=== PATIENT | female | born 1950 | race Caucasian/White ===

== ENCOUNTER 2019-06-02 09:41 | Outpatient (CLI) | payer MEDICARE, SELFPAY ==
--- NOTE | ~2019-06-02 | MM_ITS ---
EXAMINATION: MM screening bear BI w na HISTORY: Screening mammogram TECHNIQUE: Craniocaudal and mediolateral oblique 3-D tomosynthesis images were obtained and synthetic 2-D images were generated. CAD analysis was submitted and interpreted. COMPARISON: 05/09/2018, 04/24/2017, 03/29/2016 bilateral digital screening mammogram examinations BREAST PARENCHYMAL COMPOSITION: The breasts are almost entirely fatty. FINDINGS: There is no evidence of suspicious mass, calcification, or architectural distortion to sugg est malignancy in either breast. There has been no suspicious interval change. IMPRESSION: 1. No mammographic evidence of malignancy. 2. Recommend routine screening mammography in one year. BI-RADS Category 1: Negative Reviewed, dictated and finalized at location A. ROAD EMERGENCY SERVICES MANAGER
== END 2019-06-02 09:42 | disposition home or self-care (01) ==
PROVIDERS: PCP Family Medicine; Visit Provider Family Medicine
DX: Z12.31 Encounter for screening mammogram for malignant neoplasm of breast (principal)
CPT/HCPCS: 77063; 77067

== ENCOUNTER 2020-06-24 14:32 | Outpatient (CLI) | payer MEDICARE, SELFPAY ==
--- NOTE | ~2020-06-24 | MM_ITS ---
EXAMINATION: MM screening bear BI w na HISTORY: Screening TECHNIQUE: Craniocaudal and mediolateral oblique 3-D tomosynthesis images were obtained and synthetic 2-D images were generated. CAD analysis was submitted and interpreted. COMPARISON: Comparison to multiple prior studies sequentially, with oldest reviewed study dated 08/17. BREAST PARENCHYMAL COMPOSITION: There are scattered areas of fibroglandular density. FINDINGS: There is no evidence of suspicious mass, calcification, or architectural distortion to sugg est malignancy in either breast. There has been no suspicious interval change. IMPRESSION: 1. No mammographic evidence of malignancy. 2. Recommend routine screening mammography in one year. BI-RADS Category 1: Negative Reviewed, dictated and finalized at location A. STRIPPER
--- NOTE | ~2020-06-24 | DEXA_ITS ---
Bone Density Report Name: Elham Benedict Age: 69 Sex: Female Ethnicity: White Date of : 1950 Indication: osteopenia; monitoring treatment; prior fracture; hysterectomy; Referring Provider: Willem, True Larios Study: Bone densitometry was performed. Exam Date: June 24, 2020 Accession number: [id number] Bone Density: Region BMD T-score Z-score Classification AP Spine (L1, L2) 0.891 -0.8 1.2 Normal Femoral Neck (Left) 0.654 -1.8 0.1 Osteopenia Total Hip (Left) 0.872 -0.6 1.0 Normal Total Hip Bilateral Avg 0.874 -0.6 1.0 Normal Femoral Neck (Right) 0.689 -1.4 0.4 Osteopenia Total Hip (Right) 0.876 -0.5 1.0 Normal World Health Organization criteria for BMD impression classify patients as: Normal (T-score at or above -1.0), Osteopenia (T-score between -1.0 and -2.5), or Osteoporosis (T-score at or below -2.5). 10-year Fracture Risk: FRAX not reported because: Treated for osteoporosis Previous Exams: Region Exam Age BMD T-score BMD Change BMD Change Date g/cm2 vs Baseline vs Previous AP Spine(L1, L2) 06/24/2020 69 0.891 -0.8 0.009(1.0%)# 0.029(3.4%)* 04/29/2018 67 0.862 -1.1 -0.021(-2.3%)# -0.021(-2.3%)# 07/14/2013 62 0.882 -0.9 Total Hip(Left) 06/24/2020 69 0.872 -0.6 -0.007(-0.8%)# 0.013(1.5%) 04/29/2018 67 0.859 -0.7 -0.020(-2.3%)# -0.020(-2.3%)# 07/14/2013 62 0.879 -0.5 Total Hip(Right) 06/24/2020 69 0.876 -0.5 0.015(1.8%)# 0.032(3.8%)* 04/29/2018 67 0.844 -0.8 -0.017(-2.0%)# -0.017(-2.0%)# 07/14/2013 62 0.861 -0.7 *Denotes significance at 95% confidence level, LSC for AP Spine = 0.022 g/cm2, LSC for Total Hip = 0.027 g/cm2 Clinical Information Provided by Patient: Has had a low trauma fracture Is being treated for osteoporosis Has used the following medications: Fosamax (i.e. alendronate), Vitamin D, Calcium Has the following medical conditions: Hysterectomy Patient maximum height was 65 Menopause Age: 51 No regular weight bearing exercise Onset of menses at age 13 Number of children 3 Impression: The patient has low bone mass, based on the Left Femoral Neck T-score. The patient has risk factors, including: previous fracture. No significant bone loss was observed. Discussion: PATIENT UNDER TREATMENT WITH NO SIGNIFICANT BMD LOSS SINCE LAST EXAM. In an untreated patient, BMD typically declines with age. A lack of decline or gain is usually a sign that treatment is efficacious and frac
== END 2020-06-24 14:33 | disposition home or self-care (01) ==
PROVIDERS: PCP Family Medicine; Visit Provider Family Medicine
DX: Z12.31 Encounter for screening mammogram for malignant neoplasm of breast (principal); Z78.0 Asymptomatic menopausal state; M85.852 Other specified disorders of bone density and structure, left thigh; M85.851 Other specified disorders of bone density and structure, right thigh
CPT/HCPCS: 77063; 77067; 77080

== ENCOUNTER 2020-08-19 12:22 | Emergency (ER) | payer MEDICARE, SELFPAY ==
[2020-08-19 12:31] VITALS: BP 150/96; PULSE 104; RESP 20; TEMP 36.9; O2SAT 99
--- NOTE | 2020-08-19 12:33 | ED.WOUNDLAC ---
HPI - Wound/Laceration General Chief Complaint: Wound/Laceration Stated Complaint: cut left 4th finger Time Seen by Provider: 08/19/20 12:33 Source: patient Mode of arrival: ambulatory Limitations: no limitations History of Present Illness HPI narrative: Elham Benedict is a 70 yo female with a PMH of high cholesterol, HTN, Comes to [facility] with a small avulsion of the L fiurther distal finger, medial side. Related Data Home Medications Medication Instructions Recorded Confirmed azelaic acid TOPICAL 08/19/20 estradiol VAGINAL 08/19/20 rosuvastatin mg 08/19/20 spironolacton-hydrochlorothiaz tablet 08/19/20 verapamil mg PO 08/19/20 zolpidem 08/19/20 Allergies Allergy/AdvReac Type Severity Reaction Status Date / Time ampicillin Allergy Unknown Unverified 06/19/14 15:44 brimonidine Allergy Unknown Unverified 06/19/14 15:44 dorzolamide Allergy Unknown Unverified 06/19/14 15:44 latanoprost Allergy Unknown Unverified 06/19/14 15:44 niacin Allergy Unknown Unverified 06/19/14 15:44 timolol Allergy Unknown Unverified 06/19/14 15:44 clarithromycin AdvReac Unknown Unverified 06/19/14 15:44 meperidine AdvReac Unknown Unverified 06/19/14 15:44 trazodone AdvReac Unknown Unverified 06/19/14 15:44 Review of Systems Review of Systems: Narrative: CONSTITUTIONAL: Denies fever, chills, sweats. EYES: Denies visual changes, redness, discharge. ENT: Denies rhinorrhea, congestion, sore throat, otalgia. CARDIOVASCULAR: Denies chest pain, palpitations, edema. RESPIRATORY: Denies dyspnea, wheezing, cough GASTROINTESTINAL: Denies abdominal pain, nausea, vomiting, diarrhea. GENITOURINARY: Denies dysuria, hematuria, abnormal discharge SKIN: Denies rash or itching. Small avusion of the distal fourth finger NEUROLOGIC: Denies numbness, or focal weakness. PSYCHIATRIC: Denies anxiety or depression. [facility] Past Medical History Medical History High cholesterol HTN (hypertension) Family History Family History Other Diabetes mellitus Family history of coronary artery disease Family history of elevated blood lipids Hypertension Social History Social History Smoking status: Never smoker Alcohol intake: current Comments At time of signature, I agree with nursing past medical, surgical, social and family history. There is no relevant family history pertinent to the presenting complaint. Exam Narrative: Exam Narrative: GENERAL: This is a well-nourished, well-developed patient, in mild distress. HEAD: normocephalic, atraumatic. EYES: Sclera clear/white. Vision is grossly intact. EARS: External ears normal. Hearing grossly intact. NOSE: External nose normal without nasal discharge, nares without redness, no rhinorrhea. THROAT: Mucous membranes moist, NECK: Neck supple, CARDIOVASCULAR: Regular rate and rhythm without murmurs, gallops, or rubs. RESPIRATORY: Clear to auscultation. Breath sounds equal bilaterally. No wheezes, rales, or rhonchi. GASTROINTESTINAL: Abdomen soft, SKIN: warm, intact with small ( 1 cm) skin avulsion at tip of fourth finger that is ooozing NEURO: awake, alert, and oriented to person, place and time. There were no obvious focal neurologic abnormalities. Steady gait EXTREMITIES: Normal range of motion. BACK: Nontender without deformity Course Course Emergency Course: [facility] avulsion of the distal digit of the fourth finger - Procedure with surgicel, finer splint applied- directions given Vital Signs Vital signs: Vital Signs Temperature 98.4 F 08/19/20 12:31 Pulse Rate 104 H 08/19/20 12:31 Respiratory Rate 20 08/19/20 12:31 Blood Pressure 150/96 H 08/19/20 12:31 Pulse Oximetry 99 08/19/20 12:31 Temperature 98.4 F 08/19/20 12:31 Pulse Rate 104 H 08/19/20 12:31
[2020-08-19] MEDS: TETANUS,DIPHTHERIA,AC PERTUSSIS ADULT (0.5 ML) BOOSTRIX IM (12:49)
== END 2020-08-19 13:38 | disposition home or self-care (01) ==
PROVIDERS: Emergency Provider Nurse Practitioner; PCP Family Medicine
DX: S61.205A Unspecified open wound of left ring finger without damage to nail, initial encounter (principal); W45.8XXA Other foreign body or object entering through skin, initial encounter; Z23 Encounter for immunization; I10 Essential (primary) hypertension; E78.00 Pure hypercholesterolemia, unspecified
CPT/HCPCS: 90471; 90715; 99212; G0463

== ENCOUNTER 2021-06-27 10:21 | Outpatient (CLI) | payer MEDICARE, SELFPAY ==
--- NOTE | ~2021-06-27 | MM_ITS ---
EXAMINATION: MM screening bear BI w na HISTORY: Screening TECHNIQUE: Craniocaudal and mediolateral oblique 3-D tomosynthesis images were obtained and synthetic 2-D images were generated. CAD analysis was submitted and interpreted. COMPARISON: Comparison to multiple prior studies sequentially, with oldest reviewed study dated 08/17. BREAST PARENCHYMAL COMPOSITION: There are scattered areas of fibroglandular density. FINDINGS: There is no evidence of suspicious mass, calcification, or architectural distortion to sugg est malignancy in either breast. There has been no suspicious interval change. IMPRESSION: 1. No mammographic evidence of malignancy. 2. Recommend routine screening mammography in one year. BI-RADS Category 1: Negative Reviewed, dictated and finalized at location A. CTOR OF CORPORATE SALES
== END 2021-06-27 10:22 | disposition home or self-care (01) ==
PROVIDERS: PCP Family Medicine; Visit Provider Obstetrics & Gynecology
DX: Z12.31 Encounter for screening mammogram for malignant neoplasm of breast (principal)
CPT/HCPCS: 77063; 77067

== ENCOUNTER 2022-05-20 11:33 | Outpatient (CLI) | payer MEDICARE, SELFPAY ==
--- NOTE | ~2022-05-20 | XR_ITS ---
XR chest 2V 05/20/2022 11:54 Indication: Breast pain Procedure: PA and lateral views the chest Comparison: CT dated 09/16/2014 Findings: There are coarse interstitial infiltrates peripherally and symmetrically. Heart size normal . No pleural effusion. No pneumothorax. Impression: 1: Coarse interstitial infiltrates symmetrically and bilaterally, likely chronic, with a pattern cons istent with usual interstitial pneumonia. Reviewed, dictated and finalized at location A. RVISOR RECLAMATION Impression: 1: Coarse interstitial infiltrates symmetrically and bilaterally, likely chroni c, with a pattern consistent with usual interstitial pneumonia.
== END 2022-05-20 11:34 | disposition home or self-care (01) ==
PROVIDERS: PCP Family Medicine; Visit Provider Family Medicine
DX: N64.4 Mastodynia (principal); R91.8 Other nonspecific abnormal finding of lung field
CPT/HCPCS: 71046

== ENCOUNTER 2022-05-29 13:14 | Outpatient (CLI) | payer MEDICARE, SELFPAY ==
--- NOTE | ~2022-05-29 | MM_ITS ---
EXAMINATION: MM diagnostic bear BI w na HISTORY: Right upper outer quadrant breast pain TECHNIQUE: ML, MLO and CC 3-D tomosynthesis images of both breasts were performed and synthetic 2-D i mages were generated. CAD analysis was submitted and interpreted. COMPARISON: 06/27/2021, 06/24/2020, bilateral screening mammogram examinations BREAST PARENCHYMAL COMPOSITION: The breasts are almost entirely fatty. FINDINGS: No suspicious mass or architectural distortion, malignant calcification, skin thickening or retraction or significant new or developing density is detected. IMPRESSION: 1. No mammographic evidence of malignancy 2. Routine mammographic screening is recommended BI-RADS Category 1: Negative Reviewed, dictated and finalized at location A. MAKER
== END 2022-05-29 13:15 | disposition home or self-care (01) ==
PROVIDERS: PCP Family Medicine; Visit Provider Family Medicine
DX: N64.4 Mastodynia (principal)
CPT/HCPCS: 77062; 77066; G0279

== ENCOUNTER 2022-06-06 09:04 | Outpatient (CLI) | payer MEDICARE, SELFPAY ==
--- NOTE | ~2022-06-06 | CT_ITS ---
EXAMINATION: CT diagnostic chest wo con DATE: 06/06/2022 09:33 INDICATION: Lung infiltrate TECHNIQUE: Computed tomography (CT) of the chest was performed without intravenous contrast. The dose -length product (DLP) was 92.02 mGy-cm. Automated exposure control and iterative reconstruction techn ique were employed. COMPARISON: 09/16/2014 FINDINGS: There are subpleural reticular and groundglass opacities with a mid and lower lung zone pre dominance. No honeycombing is identified. No pleural effusion or pneumothorax. No pathologically enla rged thoracic lymph nodes are identified. The heart size is normal. Calcified coronary artery atheros clerosis is noted. There is an L1 compression fracture with 35% loss of anterior vertebral body heigh t, new since the comparison examination. IMPRESSION: 1. Chronic interstitial lung disease in a pattern of nonspecific interstitial pneumonia (NSIP). 2. L1 compression fracture with 35% loss of anterior vertebral body height, new since the comparison examination. Reviewed, dictated and finalized at location B. ERN GRADER CUTTER IMPRESSION: 1. Chronic interstitial lung disease in a pattern of nonspecific interstitial p neumonia (NSIP). 2. L1 compression fracture with 35% loss of anterior vertebral body height, new since the comparison examination.
== END 2022-06-06 09:05 | disposition home or self-care (01) ==
PROVIDERS: PCP Family Medicine; Visit Provider Family Medicine
DX: R91.8 Other nonspecific abnormal finding of lung field (principal); S32.010D Wedge compression fracture of first lumbar vertebra, subsequent encounter for fracture with routine healing; X58.XXXD Exposure to other specified factors, subsequent encounter
CPT/HCPCS: 71250

== ENCOUNTER 2022-06-27 12:55 | Outpatient (CLI) | payer MEDICARE, SELFPAY ==
--- NOTE | ~2022-06-27 | DEXA_ITS ---
Bone Density Report Name: SUMA STRICKLAND Age: 71 Sex: Female Ethnicity: White Date of : 1950 Indication: postmenopausal; screening for osteoporosis; prior fracture; asthma or emphysema; Referring Provider: LUCIANO, SHERYL Larios Study: Bone densitometry was performed. Exam Date: June 27, 2022 Accession number: [id number] Bone Density: Region BMD T-score Z-score Classification AP Spine(L1-L4) 1.036 -0.1 2.2 Normal Femoral Neck (Left) 0.688 -1.4 0.5 Osteopenia Total Hip (Left) 0.906 -0.3 1.4 Normal Femoral Neck (Right) 0.729 -1.1 0.9 Osteopenia Total Hip (Right) 0.858 -0.7 1.0 Normal Total Hip Mean 0.882 -0.5 1.2 Normal World Health Organization criteria for BMD impression classify patients as: Normal (T-score at or above -1.0), Osteopenia (T-score between -1.0 and -2.5), or Osteoporosis (T-score at or below -2.5). 10-year Fracture Risk: FRAX not reported because: Prior hip or vertebral fracture Previous Exams: Region Exam Age BMD T-score BMD Change BMD Change Date g/cm2 vs Baseline vs Previous Total Hip(Left) 06/27/2022 71 0.906 -0.3 0.047 (5.5%)* 0.034 (3.9%)* 06/24/2020 69 0.872 -0.6 0.013 (1.5%) 0.013 (1.5%) 04/29/2018 67 0.859 -0.7 Total Hip(Right) 06/27/2022 71 0.858 -0.7 0.014 (1.7%) -0.018 (-2.1%) 06/24/2020 69 0.876 -0.5 0.032 (3.8%)* 0.032 (3.8%)* 04/29/2018 67 0.844 -0.8 *Denotes significance at 95% confidence level, LSC for Total Hip = 0.027 g/cm2 Clinical Information Provided by Patient: Have had a previous hip or vertebral fracture Has had a low trauma fracture Has used the following medications: Vitamin D, Calcium Has the following medical conditions: Asthma or Emphysema Patient maximum height was 65.5 Menopause Age: 51 No regular weight bearing exercise Drinks caffeinated beverages Onset of menses at age 15 Number of children 3 Missed period for more than 6 months in a row Impression: The patient has low bone mass, based on the Left Femoral Neck T-score. The patient has risk factors, including: previous fracture. No significant bone loss was observed. Discussion: INCREASED RISK OF FRACTURE DUE TO HISTORY OF FRACTURE. The patient's previous fracture puts the patient at high risk of a future fracture. In untreated patients, the risk of osteoporotic fracture increases approximately two-fold for each 1.0 SD decrease in T-score. Low bone density is not the only risk factor for fracture; also consider factors such
== END 2022-06-27 12:56 | disposition home or self-care (01) ==
PROVIDERS: PCP Family Medicine; Visit Provider Family Medicine
DX: Z78.0 Asymptomatic menopausal state (principal); M85.852 Other specified disorders of bone density and structure, left thigh; M85.851 Other specified disorders of bone density and structure, right thigh
CPT/HCPCS: 77080

== ENCOUNTER 2022-12-31 13:41 | Outpatient (CLI) | payer MEDICARE, SELFPAY ==
--- NOTE | ~2022-12-31 | CT_ITS ---
EXAMINATION:CT chest high resolution wo nc DATE: 12/31/2022 14:14 INDICATION: Interstitial lung disease. TECHNIQUE: Computed tomography (CT) of the chest was performed without intravenous contrast. Automate d exposure control and iterative reconstruction technique were employed. The dose-length product (DLP ) was 217.21 mGy-cm. COMPARISON: Chest CT 06/06/2022 FINDINGS: There is widespread peripheral septal thickening in the lungs. There are associated relativ bassam mild groundglass opacities in the inferior lungs. There is mild bronchiectasis in the inferior jyoti ngs. No honeycombing. No pleural effusion. The heart size is normal. There are coronary artery calcif ications. No pericardial effusion. There is ectasia of ascending aorta measuring 4.0 cm. There are no pathologically enlarged lymph nodes. There is mild thoracic spondylosis. Again seen is a chronic bur st fracture of L1. IMPRESSION: 1. Stable chronic interstitial lung disease in a pattern of nonspecific interstitial pneumonia (NSIP) versus usual interstitial pneumonia (UIP). Reviewed, dictated and finalized at location A. IMPRESSION: 1. Stable chronic interstitial lung disease in a pattern of nonspecific interst itial pneumonia (NSIP) versus usual interstitial pneumonia (UIP).
== END 2022-12-31 13:42 | disposition home or self-care (01) ==
LOC: ANHIMG 13:44
PROVIDERS: PCP Family Medicine
DX: J84.9 Interstitial pulmonary disease, unspecified (principal)
CPT/HCPCS: 71250

== ENCOUNTER 2023-09-03 10:15 | Outpatient (CLI) | payer MEDICARE, SELFPAY ==
--- NOTE | ~2023-09-03 | MM_ITS ---
EXAMINATION: MM screening bear BI w na HISTORY: Screening mammogram TECHNIQUE: Craniocaudal and mediolateral oblique 3-D tomosynthesis images were obtained and synthetic 2-D images were generated. CAD analysis was submitted and interpreted. COMPARISON: May 29, 2022, June 27, 2021 bilateral screening mammogram examinations BREAST PARENCHYMAL COMPOSITION: The breasts are almost entirely fatty. FINDINGS: There is no evidence of suspicious mass, calcification, or architectural distortion to sugg est malignancy in either breast. There has been no suspicious interval change. IMPRESSION: 1. No mammographic evidence of malignancy. 2. Recommend routine screening mammography in one year. BI-RADS Category 1: Negative Reviewed, dictated and finalized at location A.
== END 2023-09-03 10:16 | disposition home or self-care (01) ==
PROVIDERS: PCP Family Medicine; Visit Provider Obstetrics & Gynecology
DX: Z12.31 Encounter for screening mammogram for malignant neoplasm of breast (principal)
CPT/HCPCS: 77063; 77067

== ENCOUNTER 2024-01-06 13:34 | Outpatient (CLI) | payer MEDICARE, SELFPAY ==
--- NOTE | ~2024-01-06 | CT_ITS ---
EXAMINATION: CT diagnostic chest wo con DATE: 01/06/2024 13:58 INDICATION: interstitial pulmonary disease TECHNIQUE: Computed tomography (CT) of the chest was performed without intravenous contrast. Addition al 3D reconstructions utilizing coronal maximum intensity projection (MIP) were performed. Automated exposure control and iterative reconstruction technique were employed. The dose-length product was 23 9.68 mGy-cm. COMPARISON: Chest CT dated 12/31/2022 FINDINGS: Stable appearance of bilateral widespread peripheral irregular septal line thickening and mild ground glass opacities with peripheral and lower lung predominance. There also appears to be some mild assoc iated honeycombing and would favor usual interstitial pneumonia (UIP) over nonspecific interstitial p neumonia (NSIP) pattern chronic interstitial lung disease. There is mild associated bronchiectasis in the lower lungs. No suspicious pulmonary nodules, pneumonia or pleural effusion. Heart size is scott l. Small amount of atherosclerotic coronary artery calcification. No pericardial effusion. Thoracic a franki is normal in caliber. No pathologically enlarged thoracic lymphadenopathy. No significant change in a 8 mm low-attenuation likely cyst or hemangioma in the left hepatic lobe. Unchanged chronic L1 b urst fracture. IMPRESSION: 1. Stable appearance of chronic interstitial lung disease and favor usual interstitial pneumonia (UIP ) over nonspecific interstitial pneumonia (NSIP) pattern chronic interstitial lung disease. Reviewed, dictated and finalized at location B. IMPRESSION: 1. Stable appearance of chronic interstitial lung disease and favor usual inter stitial pneumonia (UIP) over nonspecific interstitial pneumonia (NSIP) pattern chronic interstitial lung disease.
== END 2024-01-06 13:35 | disposition home or self-care (01) ==
LOC: ANHIMG 13:42
PROVIDERS: PCP Family Medicine; Visit Provider Internal Medicine Pulmonary Disease
DX: J84.9 Interstitial pulmonary disease, unspecified (principal)
CPT/HCPCS: 71250

== ENCOUNTER 2024-01-28 14:37 | Outpatient (CLI) | payer MEDICARE, SELFPAY ==
--- NOTE | ~2024-01-28 | MR_ITS ---
EXAMINATION: MR brain IAC wo/w con DATE: 01/28/2024 15:42 INDICATION: Asymmetric sensorineural hearing loss. TECHNIQUE: Magnetic resonance imaging (MRI) of the brain, brainstem, and internal auditory canals was performed without and with 17 mL MultiHance intravenous contrast. COMPARISON: None. FINDINGS: There are scattered areas of nonspecific increased T2-weighted signal intensity in the cere bral white matter. There is no intracranial hemorrhage, acute infarction, or abnormal intracranial ma ss lesion. The ventricles are normal in size. The internal auditory canals, inner ears, tympanic cavi ties, and mastoid air cells are normal. There is mild mucosal thickening in the ethmoid sinuses. The orbits are normal. IMPRESSION: 1. Mild nonspecific cerebral white matter disease, which likely represents chronic small vessel ische janette disease. Reviewed, dictated and finalized at location A. IMPRESSION: 1. Mild nonspecific cerebral white matter disease, which likely represents data systems manager kathy small vessel ischemic disease.
== END 2024-01-28 14:38 | disposition home or self-care (01) ==
PROVIDERS: PCP Family Medicine; Visit Provider Otolaryngology
DX: H90.3 Sensorineural hearing loss, bilateral (principal); R90.82 White matter disease, unspecified
CPT/HCPCS: 70553; A9577

== ENCOUNTER 2024-05-06 14:31 | Outpatient (CLI) | payer MEDICARE, SELFPAY ==
[2024-05-06 15:04] LABS: Alanine Aminotransferase 19 U/L (6-35); Aspartate Amino Transferase 31 U/L (14-36)
== END 2024-05-06 14:32 | disposition home or self-care (01) ==
PROVIDERS: PCP Family Medicine; Visit Provider Podiatrist Foot & Ankle Surgery
DX: B35.1 Tinea unguium (principal)
CPT/HCPCS: 36415; 84450; 84460

== ENCOUNTER 2024-08-05 11:18 | Outpatient (CLI) | payer MEDICARE, SELFPAY ==
[2024-08-05 12:00] LABS: Alanine Aminotransferase 19 U/L (6-35); Aspartate Amino Transferase 34 U/L (14-36)
--- OUTSIDE RECORDS SUMMARY | 2024-08-05 12:43 | XMS_ITS | Clinical Summary ---
Author Organization [facility] [address] [facility] lt Address [address] [place] [address] Care Team Providers Care Veneer Glue Spreader Name Role Phone True Bangura MD Primary Care Provider [phone] Allergies Active Allergy Reactions Criticality Noted Date Comments Ampicillin Rash Reaction: Rash, , Sulfamethoxazole-Trimethopr im Rash Medium 10/14/2017 Clarithromycin Other (See comments) Low Reaction: GI Bleeding, Brimonidine-Timolol Itching Low 10/14/2017 Itching eyelids and swelling Dorzolamide-Timolol Itching Low 10/14/2017 Itching eyelids, swelling Ethinyl Estradiol Rash Reaction: Rash, Levonorgestrel Rash Reaction: Rash, Methylprednisolone Nausea & Vomiting Low Meperidine Vision changes Reaction: Blurred vision, , Naproxen Stomach upset Reaction: GI problems, , Niacin Penicillins Trazodone Azithromycin Nausea only Low 10/14/2017 Medications biotin 800 mcg tablet BID 0 0 12/22/19 15 Active coenzyme Q10 (CO Q-10) 100 mg capsule one daily 0 0 12/22/19 15 Active calcium-magnesi um-zinc 333-133-8.3 mg tablet one daily 0 0 12/22/19 15 Active Lactobacillus acidophilus (PROBIOTIC) 10 billion cell capsule one daily 0 0 12/22/19 15 Active multivitamin capsule one daily 0 0 12/22/19 15 Active loratadine (CLARITIN) 10 mg tablet take 1 tablet by oral route every day 0 0 06/21/19 16 Active glucosam wang pmr-yoeqfaixa-Y -Mn (GLUCOSAMINE-CH ONDROITIN) 575-972-45-5 mg tablet BID 0 0 12/22/19 15 Active calcium carbonate (CALCIUM 600) 1,500 mg (600 mg of elemental calcium) tablet BID 0 0 12/22/19 15 Active azelaic acid 15 % gel Apply topically daily After skin is thoroughly washed and patted dry, gently but thoroughly massage a thin film of azelaic acid cream into the affected area twice daily, in the morning and evening. Active cetirizine (ZyrTEC) 5 mg tablet Take 1 tablet (5 mg total) by mouth daily Active fluticasone propionate (FLONASE) 50 mcg/actuation nasal spray Administer 1 spray into each nostril daily Active olopatadine HCl (PATADAY OPHT) Administer into affected eye(s) Active famotidine (Pepcid) 40 mg tablet Take 1 tablet (40 mg total) by mouth nightly 90 tablet 3 07/02/19 24 Active estradioL (ESTRACE) 0.01 % (0.1 mg/gram) vaginal cream INSERT 1/2 GRAM VAGINALLY TWICE WEEKLY NEEDED 42.5 g 1 08/23/19 24 Active alendronate (FOSAMAX) 70 mg tablet Take 1 tablet (70 mg total) by mouth every 7 days. Take in the morning with a full glass of water, on an empty stomach, and do not take anything else by mouth or lie down for the next 30 min. 12 tablet 1 02/25/20 24 025 Active rosuvastatin (CRESTOR) 10 mg tablet TAKE 1 TABLET DAILY 90 tablet 3 04/17/20 24 Active verapamil SR (CALAN SR) 180 mg CR tablet TAKE 1 TABLET DAILY 90 tablet 3 04/17/20 24 Active doxepin 6 mg tablet Take 1 Tablet (6 mg) by mouth daily at bedtime. 90 tablet 3 04/27/19 25 Active terbinafine (LamiSIL) 250 mg tablet Take 1 tablet (250 mg total) by mouth daily Active spironolactone- hydroCHLOROthia zide (ALDACTAZIDE) 25-25 mg per tablet Take 1 tablet by mouth daily 90 tablet 1 07/28/19 25 Active spironolactone- hydroCHLOROthia zide (ALDACTAZIDE) 25-25 mg per tablet Take 1 tablet by mouth daily 90 tablet 1 01/28/20 24 025 Discontinued Active Problems Problem Noted Date Diagnosed Date Non-allergic eosinophilic rhinitis (NARES) 06/30 Assessment & Plan (06/30/2024 2:33 PM CDT): COntinue to follow and eunice landeros. NO change and will follw nino. Refer to Dr. Lamb. Encounter for screening mamm ogram for malignant neoplasm of breast 06/30/2024 Assessment & Plan (06/30/2024 2:33 PM CDT): Mamomgram ordered and pending. WIll follow response. Asymptomatic menopausal state 06/30/2024 Assessment & Plan (06/30/2024 2:33 PM CDT): BOne dneisty. Reivewed calcium and vitamin D supploementaiton. BMI 31.0-31.9,adult 06/30/2024 Assessment & Plan (06/30/2024 2:33 PM CDT): Emncoruage 150min/week aerobic exerics.e Obesity (BMI 30.0-34.9) 06/30/2024 History of colonic polyps 02/26/2024 Encounter for screening colonoscopy 02/26/2024 Family history of colon cancer 02/26/2024 Medicare annual wellness visit, subsequent 01/06 Assessment & Plan (01/07/2024 10:27 AM CDT): Focus of exam is preventative in nature. Reivewed immunizations, reivewed sun/skin cancer screening. Reviwed colon/breast cancer screneing. Reivewed fall prevention and will continue to follow response. Healthy lifesytle and food choices. Asymmetric SNHL (sensorineural hearing loss) Assessment & Plan (06/30/2024 2:33 PM CDT): Ek0rxafdv f/u with Dr. Lamb and hearing aid dawnauaprince. Assessment & Plan (01/07/2024 10:28 AM CDT): COnbtinue f/u with ENT and audiology. [facility] MRI of the area to r/o intracranial pathology. No vertigo, no focal abnomraltieis. Gastroesophageal reflux disease 01/07/2024 Assessment & Plan (01/07/2024 10:28 AM CDT): Stable on famotidine, no dysphagia, no blood in the stools, no blood in the urine. Osteoporosis 01/07/2024 Assessment & Plan (01/07/2024 10:28 AM CDT): Continue on calcium, vitamin D supplementation and alendronate. No chagne. Primary osteoarthritis of right hip 01/07/2024 Assessment & Plan (01/07/2024 10:29 AM CDT): ENocurage weight bearign activity as tolerated. Reviewed tylenol dosing and will montio rrepsonse. ENcourage 2,000-3,000mg tylenol daily. REivewed nonweightbearing aerobic exericse. BMI 30.0-30.9,adult 01/07/2024 Assessment & Plan (01/07/2024 10:29 AM CDT): ENocurag ehelathy food choices and aerobic exericse targets. Class 1 obesity due to exces s calories with body mass index (BMI) of 30.0 to 30.9 in adult 01/07/2024 Assessment & Plan (01/07/2024 10:29 AM CDT): As above. Interstitial lung disease 01/14/2023 Assessment & Plan (06/30/2024 2:33 PM CDT): Continue f/u with Dr. Altman. No acute findings on exam today. Assessment & Plan (01/07/2024 10:26 AM CDT): Continue f/u with Dr. Altman. No change in dry cough and no change in CT scna completed yesterday at [facility]. Refused pneumococcal vaccination 06/16/2018 Refused influenza vaccine 06/16/2018 Basal cell carcinoma (BCC) of face 11/07/2016 Assessment & Plan (01/07/2024 10:26 AM CDT): Continue f/u with dermatology. Assessment & Plan (11/29/2020 10:30 AM CDT): Sees Dr. Bowling. MOHS surgery x2. No new lesions in past 6 months. Actinic keratosis 05/09/2016 Strain of lumbar region 03/09/2016 Overview (07/27/2016): Strain of muscle, fascia and tendon of lower back, initial encounter Hyperlipidemia 12/21/2014 Overview (07/27/2016): Hyperlipidemia Assessment & Plan (06/30/2024 2:32 PM CDT): Continues with crestor and will follow response. No new side effects to medication and will montior response. Assessment & Plan (01/07/2024 10:25 AM CDT): Stable on rosuvastatin. NO new myalgias./arthralgias. Assessment & Plan (11/29/2020 10:31 AM CDT): Rosuvastatin 10mg daily. Denies any SE/myalgias Reviewed previous labs. Will check labs today and make adjustments to medications as needed. Secondary prevention Discussed focusing on limiting bad fats in the diet and using exercise as a way to improve cholesterol. Reviewed exercise recommendations and red flags warranting further evaluation. Persistent insomnia 12/21/2014 Overview (07/27/2016): Persistent insomnia Assessment & Plan (11/29/2020 10:32 AM CDT): Doing well on zolpidem 10mg nightly. Essential hypertension 12/21/2014 Overview (07/27/2016): Hypertension Assessment & Plan (06/30/2024 2:32 PM CDT): Stable on aldactazide and verapamil SR and will monitor repsonse. Encourage and will follwroe spnse. NO change. Assessment & Plan (01/07/2024 10:26 AM CDT): Stable on aldactazide and verapamil SR 180mg daily. Assessment & Plan (11/29/2020 10:33 AM CDT): Doing well on current regimen. Checking BP at home. Will call if SBP >140, DBP>90. Continue effort to improve diet-increase fruits/vegetables. Watch sodium intake <2000mg daily Labs ordered; will notify of results. Assessment & Plan (10/01/2016 2:01 PM CDT): Patient with excellent home BP monitoring. All at goal. Lonstanding hx of white coat HTN. Resolved Problems Problem Noted Date Diagnosed Date Resolved Date Encounter for screening colonoscopy 10/15/2018 01/12/2020 Overview (10/15/2018): Added automatically from request for surgery [id number] Encounters Date Type Department Care Team Description 06/30/2024 2:00 PM CDT Office Visit [facility] Primary Care at [address] [address] True Bangura MD Mixed hyperlipidemia (Primary Dx); Essential hypertension; Interstitial lung disease (HCC); Non-allergic eosinophilic rhinitis (NARES); Encounter for screening mammogram for malignant neoplasm of breast; Asymptomatic menopausal state; Asymmetric SNHL (sensorineural hearing loss); BMI 31.0-31.9,adult; Obesity (BMI 30.0-34.9) 05/26/2024 11:15 AM PROCESSING SPEC Office Visit [facility] [address] [place] [address] Josue Estrella MD Well woman exam (Primary Dx) 05/18/2024 10:45 AM PROCESSING SPEC Anesthesia Event [facility] [address] [place] [address] Jason Yaeñz MD McDowell, Juri Osmell, MD 05/18/2024 10:00 AM PROCESSING SPEC - 05/18/2024 10:30 AM PROCESSING SPEC Surgery [address] [address] Bradly Marr MD COLONOSCOPY 05/18/2024 9:03 AM PROCESSING SPEC - 05/18/2024 12:05 PM PROCESSING SPEC Hospital Encounter [address] [address] Bradly Marr MD Discharge Disposition: Discharge to home or self care from Last 3 Months Immunizations Immunization Administration Dates Next Due COVID-19 mRNA (Kangsheng Chuangxiang) 0.3 m L (30 mcg) vaccine (12 years and up) 03/16/2024 Influenza, Quad, Adjuvantate d, Intramuscular 01/21/2020 Influenza, Quadrivalent, Hig h Dose, Preservative Free, Intrr 01/28/2023,02/06/2022 Influenza, Quadrivalent, Spl it, Preservative Free, Intramuscular 01/31/2016,02/09/2015 Influenza, Trivalent, Adjuva nted, Intramuscular 01/31/2024,02/13/2019,02/07/2018,02/07,02/07/2018 Influenza, Trivalent, High D ose, Split, Preservative Free, Intramuscular 02/19/2017,01/31/2016 Influenza, Trivalent, IM (MDV) 02/02/2014 Influenza, Unspecified 01/07/2024(Deferr ed: Patient Refused),01/01/2023(Deferred: Patient Refused),01/20/2021,04/22/2020(Deferre d: Patient Refused),01/21/2020,02/13/2019, 017,02/19/2017 Pfizer SARS-CoV-2 Monovalent Vaccination (12+ Yrs) PURPLE 11/14/2021,05/03/2020,04/12/2020 Pneumococcal Conjugate PCV 13 01/31/2016, 016 Pneumococcal Polysaccharide PPV23 02/19/2017, RSV Vaccine, Pref, Recombina nt, Subunit, Adjuvanted, PF, IM (Arexvy) 02/13/2023 Sars-cov-2 Covid-19 Mrna, Bi valent, Original/omicron Ba.1 02/05/2023 TD Preservative Free 01/29/2006 Tdap 08/19/2020 ZOSTER LIVE 02/01/2010,02/01/2010 Surgical History Surgery Date Site/Laterality Comments TONSILLECTOMY Tonsillectomy TOTAL ABDOMINAL HYSTERECTOMY Hysterectomy, total MOHS SURGERY 07/18/2016 SKIN CANCER EXCISION COLONOSCOPY 07/03/2007 SQUAMOUS CELL CARCINOMA EXCISION 04/22/2020 - 04/21/2021 Left forearm and upper arm COLONOSCOPY 11/20/2018 - 12/20/2018 Medical History Medical History Date Comments Arthritis 2012 Arthritis; Comme nts: [facility] 12/21/2014 - Hx Other Medical 1984 Hyperlipidemia; Comments: [facility] 12/21/2014 - Hypertension 1984 Hypertension; Co mments: [facility] 12/21/2014 - Hx Other Medical 1984 Insomnia; Comme nts: [facility] 12/21/2014 - Hx Other Medical 2012 Rosacea; Commen ts: [facility] 12/21/2014 - Cancer (HCC) basal cell, Squamous cell carcinoma of s kin of right upper arm 03/2019 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 03/2019 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 Family History Medical History Relation Name Comments Other Brother 2 water on the br ain; Cause of : water on the brain defects Cousin 1 Paternal 1st Breast cancer Cousin 2 Colon cancer Cousin 2 Hyperlipidemia Father Hyperlipidemi a; Hypertension Father Hypertension; Other Mother lupus; /sclerod alessandra; Relation Name Status Comments Brother 1 Brother 2 Cousin 1 Paternal 1st Other Cousin 2 Father (Age 84) Mother Social History Tobacco Use Types Packs/Day Years Used Date Smoking Tobacco: Never Smokeless Tobacco: Never Tobacco Cessation:Counseling Given: Not Answered Alcohol Use Standard Drinks/Week Comments Yes 0 (1 standard drink = 0.6 oz pur e alcohol) AUDIT-C Answer Date Recorded Q1: How often do you have a drink containing alc ohol? 2-4 times a month 05/14/2024 Q2: How many drinks containi ng alcohol do you have on a typical day when you are drinking? 1 or 2 05/14/2024 Frequency of Binge Drinking Not on file 04/23 PHQ-2 Answer Date Recorded PHQ-2 Total Score (If total score is 3 or more points, staff should administer the PHQ-9) 0 06/30/2024 Personal Safety Answer Date Recorded Have you ever been in or are you currently in a harmful physical or emotional relationship or is someone making you feel afraid or unsafe? Denies 05/18/2024 Comments No Sex and Gender Information Value Date Recorded Sex Assigned at Not on file Legal Sex Female 9:17 PM PROCESSING SPEC Gender Identity Not on file Sexual Orientation Not on file Obstetrics History Para Term AB IAB SAB Ectopic Multiple Livin g Live Births 4 3 3 0 1 0 1 0 0 3 3 Date Outcome GA Total Labor Labor/2nd/3rd Weight Sex Type Anes PTL [place] A1 A5 Name Clin SAB 1976 Term 3.033 kg (6 lb 11 oz) M Vag-S pont Living 1980 Term 3.487 kg (7 lb 11 oz) F Vag-S pont Living 1984 Term M Living Last Filed Vital Signs Vital Sign Reading Time Taken Comments Blood Pressure 136/82 06/30/2024 2:07 PM CDT Pulse 79 06/30/2024 2:07 PM CDT Temperature 36.8 C (98.2 F) 06/30/2024 2:07 PM CDT Respiratory Rate 16 05/18/2024 11:5 0 AM PROCESSING SPEC Oxygen Saturation 98% 06/30/2024 2:07 PM CDT Inhaled Oxygen Concentration - - Weight 85.2 kg (187 lb 12.8 oz) 06/30/2024 2:07 PM CDT Height 165.1 cm (5' 5 ) 06/30/2024 2:07 PM CDT Body Mass Index 31.25 06/30/2024 2:07 PM CDT Plan of Treatment Health Maintenance Due Date Last Done Comments Hepatitis C Screening 1950 Hepatitis B Screening 08/12/1967 Lung Cancer Screening 08/12/1999 Zoster Vaccine (2 of 3) 03/29/2010 02/01/2010, 02/01 Osteoporosis Screening-Bone Density Scan 06/27/2024 06/27/2022, 06/24/2020, 04/29/2018, Additional history exists Breast Cancer Screening-Mammogram 09/02/2024 09/03/2023, 05/29/2022, 06/27/2021, Additional history exists Covid-19 Vaccine (2023-05 5 season) 2024 03/16/2024, 02/05/2023, 02/05/2023, Additional history exists Well Visit 65+ 05/26/2025 05/26/2024, 12/21, 03/19/2023, Additional history exists Depression Screening 06/30/2025 06/30/2024, 01/07/2024, 07/02/2023, Additional history exists Fall Risk Assessment 06/30/2025 06/30/2024, 01/07/2024, 07/02/2023, Additional history exists Colon Cancer Screening-Colonoscopy 05/18/2029 05/18/2024, 12/05/2018, 12/05/2018, Additional history exists DTaP/Tdap/Td Vaccine (2 - Td or Tdap) 08/19/2030 08/19/2020, 01/29/2006 Pneumococcal vaccine 65+ Completed 017, 02/19/2017, 01/31/2016, Additional history exists Influenza Vaccine Completed 01/31/2024, , 02/06/2022, Additional history exists Colon Cancer Screening-CT Colonography Discontinued 05/18/2024, 12/05/2018, 12/05/2018, Additional history exists Colon Cancer Screening-DNA Stool Discontinued 05/18/2024, 12/05/2018, 12/05/2018, Additional history exists Colon Cancer Screening-FIT Discontinued 05/18, 12/05/2018, 12/05/2018, Additional history exists Colon Cancer Screening-Sigmoidoscopy Discontinued 05/18/2024, 12/05/2018, 12/05/2018, Additional history exists Procedures Procedure Name Priority Date/Time Associated Diagnosis Comments COLONOSCOPY 05/18/2024 10:40 AM PROCESSING SPEC History of colonic polyps Encounter for screening colonoscopy Family history of colon cancer COLONOSCOPY 05/18/2024 9:11 AM PROCESSING SPEC SCREENING MAMMOGRAM BILATERAL W SIMONE Schedule Routine, Read Routine (OP Routine) 09/03/2023 DEXA AXIAL SKELETON BONE DENSITY 1 OR MORE SITES Schedule Routine, Read Routine (OP Routine) 06/27/2022 Asymptomatic menopausal state from Last 3 Months or Most Recently Relevant to Health Maintenance Results * Colonoscopy (05/18/2024 9:11 AM PROCESSING SPEC) Anatomical Region Laterality Modality Other Narrative Procedure Note Bradly Marr MD - 05/18/2024 9:[address] [facility] Patient Name: Elham Benedict Procedure Date: 05/18/2024 9:11 AM Date of : 1950 Admit Type: Outpatient Age: 73 Gender: Female Attending MD: Bradly Marr M.D. Room: [facility] ENDOSCOPY ROOM 1 Note Status: Finalized Patient Profile: This is a 73 year old female. h/o adenoma polyps in 2019. No family h/o colon cancer. Procedure: Colonoscopy Indications: High risk colon cancer surveillance: Personalhistory of colonic polyps, Last colonoscopy: November 2018 Referring MD: True Bangura M.D. Providers: Bradly Marr M.D. Impression: - The entire examined colon is normal. - Internal hemorrhoids. - No specimens collected. Recommendation: - Repeat colonoscopy in 5 years for surveillance. - Continue present medications. Medicines: Monitored Anesthesia Care Complications: No immediate complications. Estimated Blood Loss: Estimated blood loss: none. Procedure: Pre-Anesthesia Assessment: - Prior to the procedure, a History and Physicalwas performed, and patient medications and allergieswere reviewed. The patient's tolerance of previous anesthesia was also reviewed. The risks andbenefits of the procedure and the sedation options and risks were discussed with the patient. All questions were answered, and informed consent was obtained. Prior Anticoagulants: The patient has taken noanticoagulant or antiplatelet agents. ASA Grade Assessment: Per anesthesia note and evaluation. After reviewing the risks and benefits, the patient was deemed in satisfactory condition to undergo the procedure. The benefits, risks and alternatives of theprocedure and sedation were discussed and informed consentwas obtained. All questions were answered. Please referto the signed informed consent document in the medical record. The bowel preparation used was Miralax via split dose instruction. The bowel preparation usedwas bisacodyl tablets via split dose instruction. The scope was passed under direct vision. The Pediatric Colonoscope [id number]-[id number] was introducedthrough the anus and advanced to the the cecum, identifiedby appendiceal orifice and ileocecal valve. Thequality of the bowel preparation was good. Bowel prep was administered using a split dose. Findings: The perianal and digital rectal examinations were normal. The cecum appeared normal. The colon (entire examined portion) appeared normal. No polyps and no mass lesions noted. Internal hemorrhoids were found during retroflexion. The hemorrhoids were medium-sized. Electronically signed by Bradly Marr M.D. Bradly Marr M.D. 05/18/2024 11:30:15 AM Number of Addenda: 0 Note Initiated On: 05/18/2024 9:11 AM Procedure Code(s): --- Professional --- G0105, Colorectal cancer screening; colonoscopy on individual at high risk Diagnosis Code(s): --- Professional --- Z86.010, Personal history of colonic polyps K64.8, Other hemorrhoids CPT copyright 2020 [employer]. All rights reserved. The codes documented in this report are preliminary and upon footwear sales associate reviewmay be revised to meet current compliance requirements. Recognized by the [place] [employer] for promoting quality in endoscopy Bradly Marr MD ENDOSCOPY PROCEDURES Final Result * Screening Mammogram Bilateral W Simone (09/03/2023) Anatomical Region Laterality Modality Breast Bilateral Mammography Historical Provider IMG MAMMO PROCEDURES Annette l Result * Dexa Axial Skeleton Bone Density 1 Or 2 Site (06/27/2022) Anatomical Region Laterality Modality Body N/A Radiographic Sayra ging True Bangura MD IMG DXA PROCEDURES Final Result from Last 3 Months or Most Recently Relevant to Health Maintenance Insurance [facility] MEDICARE [facility] MEDICARE ADVANTAGE AET MEDICARE Advance Directives For more information, please contact: [phone] * Full Code (Latest Code Status on File) Date Activated Date Inactivated Comments 05/18/2024 9:16 AM 05/18/2024 4:11 PM * Full Code Date Activated Date Inactivated Comments 05/18/2024 9:16 AM 05/18/2024 9:16 AM * Full Code Date Activated Date Inactivated Comments 12/05/2018 7:48 AM 12/05/2018 1:56 PM * Full Code Date Activated Date Inactivated Comments 12/05/2018 7:48 AM 12/05/2018 7:48 AM Care Teams Veneer Glue Spreader Relationship Specialty Start Date End [place] [address] PCP - General 07/20/16
--- OUTSIDE RECORDS SUMMARY | 2024-08-05 12:43 | XMS_ITS | Clinical Summary ---
Author Organization [facility] Address [address] [facility] Attn: Epic Prelude ADT DWAYNE VANN [address] Care Team Providers Care Residential Director Name Role Phone Unavailable Primary Care Provider Unavailabl e Allergies Active Allergy Reactions Criticality Noted Date Comments Azelastine Hcl Headache,Muscle Pain High 08/08/2023 nauseous,chills, cramps Medications zolpidem (AMBIEN) 10 mg tablet Take 1 Tablet (10 mg) by mouth nightly as needed for sleep. 90 Tablet 2 2:10 PM CDT 11/16/19 22 Active terconazole (TERAZOL 3) 0.8% vaginal cream Insert 1 applicator into the vagina nightly for 3 days 20 Gram 2 11:59 AM CDT 02/20/20 22 Active omeprazole (PriLOSEC) 40 mg Capsule, Delayed Release(E.C.) Take 1 Capsule (40 mg) by mouth daily. 30 Capsule 11 3 2:10 PM WEB APPLICATIONS ARCHITECT 06/27/19 23 Active albuterol sulfate HFA 90 mcg/actuation aerosol inhaler Inhale 2 puffs every 6 (six) hours as needed for wheezing or shortness of breath 8.5 Gram 3 2:54 PM CDT 01/24/20 23 Active benzonatate (TESSALON) 200 mg capsule Take 1 capsule (200 mg total) by mouth 3 (three) times a day as needed for cough 30 Capsule 3 2:54 PM CDT 01/24/20 23 Active doxycycline monohydrate 100 mg Tablet Take 1 tablet (100 mg total) by mouth 2 (two) times a day for 7 days 14 Tablet 3 2:54 PM CDT 01/24/20 23 Active Azelaic Acid (Finacea) 15 % Gel Apply to face 1-2 times a day 50 Gram 3 3 11:39 AM CDT 01/25/20 23 Active spironolactone- hydroCHLOROthia zide (ALDACTAZIDE) 25-25 mg Tablet Take 1 Tablet by mouth daily. 90 Tablet 3 3 12:27 PM CDT 01/29/20 23 Active hydrocortisone (HYTONE) 2.5 % Cream APPLY TWICE DAILY TO INFLAMED SKIN ON WRIST WHEN NEEDED 20 Gram 2 3 2:08 PM WEB APPLICATIONS ARCHITECT 04/11/20 23 Active famotidine (PEPCID) 40 mg tablet Take 1 tablet (40 mg total) by mouth nightly 90 Tablet 3 5 2:05 PM CDT 07/02/19 24 Active azelastine (ASTELIN) 137 mcg/actuation nasal spray Administer 2 sprays in each nostril twice a day. 30 mL 11 4 2:35 PM CDT 07/29/19 24 Active estradioL (ESTRACE) 0.01% (0.1 mg/g) vaginal cream INSERT 1/2 GRAM VAGINALLY TWICE WEEKLY NEEDED 42.5 Gram 1 4 5:29 PM WEB APPLICATIONS ARCHITECT 08/23/19 24 Active Azelaic Acid 15 % Gel Apply to face 1-2 times daily 50 Gram 3 4 10:13 AM CDT 10/03/19 24 Active azelastine (ASTELIN) 137 mcg/actuation nasal spray Administer 2 sprays in each nostril twice a day 30 mL 11 01/20/20 24 Active terbinafine HCL (LamISIL) 250 mg tablet Take 1 Tablet (250 mg) by mouth daily. 90 Tablet 4 2:01 PM CDT 02/05/20 24 Active alendronate (FOSAMAX) 70 mg tablet Take 1 tablet (70 mg total) by mouth every 7 days. Take in the morning with a full glass of water, on an empty stomach, and do not take anything else by mouth or lie down for the next 30 min. 12 Tablet 1 5 11:02 AM WEB APPLICATIONS ARCHITECT 02/25/20 24 Active doxepin (SILENOR) 6 mg Tablet Take 1 Tablet (6 mg) by mouth daily at bedtime. 90 Tablet 3 5 3:02 PM CDT 04/27/19 25 Active terbinafine HCL (LamISIL) 250 mg tablet Take 1 tablet by mouth daily. 90 Tablet 5 11:02 AM WEB APPLICATIONS ARCHITECT 05/07/19 25 Active ipratropium bromide (ATROVENT) 21 mcg (0.03 %) [place], Non-Aerosol Administer 2 sprays in each nostril twice daily 30 mL 11 5 10:11 AM CDT 07/23/19 25 Active spironolactone- hydroCHLOROthia zide (ALDACTAZIDE) 25-25 mg Tablet Take 1 tablet by mouth daily 90 Tablet 1 5 3:02 PM CDT 07/28/19 25 Active spironolactone- hydroCHLOROthia zide (ALDACTAZIDE) 25-25 mg Tablet Take 1 tablet by mouth daily 90 Tablet 1 5 10:47 AM WEB APPLICATIONS ARCHITECT 01/28/20 24 025 Discontinued Social History Tobacco Use Types Packs/Day Years Used Date Smoking Tobacco: Never Assessed Comments Unknown Sex and Gender Information Value Date Recorded Sex Assigned at Not on file Legal Sex Female 3:27 PM CDT Gender Identity Not on file Sexual Orientation Not on file Plan of Treatment Health Maintenance Due Date Last Done Comments DTAP/TDAP/TD VACCINES (1 - Tdap) 1968 BREAST CANCER SCREENING 1989 COLORECTAL SCREENING 1994 Colorectal Cancer Screening 1994 FIT-DNA Q 3 years 1994 FIT/FOBT Q 1 year 1994 Flex Sig/CT Colonography Q 5 years 1994 PNEUMOCOCCAL VACCINE 50+ YEARS (1 of 1 - PCV) 08/12/19 00 ZOSTER VACCINE (1 of 2) 08/12/1999 OSTEOPOROSIS SCREENING 2014 INFLUENZA VACCINE (#1) 2023 RSV VACCINE (60+ or ) (1 - 1-dose 75+ series) 2024 Insurance RX [employer] Medicare Part D RX [employer] (INTERNAL) [facility]
--- OUTSIDE RECORDS SUMMARY | 2024-08-05 12:43 | XMS_ITS | Encounter Summary ---
Author Organization [facility] Address [address] [facility] [place] [address] Care Team Providers Care Material Flow Engineer Name Role Phone Unavailable Primary Care Provider Unavailabl e Encounter Details Date Type Department Care Team (Late st Contact Info) Description 01/28/2020 Lab Requisition [facility] [address] [place] [id number] [place] [address] [place] [address] Social History Tobacco Use Types Packs/Day Years Used Date Smoking Tobacco: Never Assessed Comments Unknown Sex and Gender Information Value Date Recorded Sex Assigned at Not on file Legal Sex Female 12:57 PM CDT Gender Identity Not on file Sexual Orientation Not on file documented as of this encounter Plan of Treatment Not on file documented as of this encounter Procedures Procedure Name Priority Date/Time Associated Diagnosis Comments DERMATOPATHOLOGY Routine 01/28/2020 12:0 0 AM CDT documented in this encounter Results * DERMATOPATHOLOGY (01/28/2020 12:00 AM CDT) Case Report Dermatopathology Report Case: [id number] Authorizing Provider: Alexia Alvarado MD Collected: 01/28/2020 12:00 AM Ordering Location: [facility] Received: 01/28/2020 01:18 PM Pathologist: Joselito Jones MD Specimen: Skin, left anterior distal upper arm 0 3:45 PM CDT DERMATOPATHOLOGY LABORATORY Final Diagnosis Specimen A. 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 0 3:45 PM CDT DERMATOPATHOLOGY LABORATORY Gross Description Specimen A: Received is one formalin filled container labeled with the patient's name and designated left anterior distal upper arm. The specimen consists of a shave biopsy measuring 6x6x1 mm. Jar 0. 0 3:45 PM CDT DERMATOPATHOLOGY LABORATORY Microscopic Description Specimen A. SKIN, left anterior distal upper arm: The epidermis shows parakeratosis, full thickness disorderly maturation of keratinocytes, mitoses at different levels, and dyskeratotic cells. 0 3:45 PM CDT DERMATOPATHOLOGY LABORATORY Disclaimer An external and internal positive and negative controls are appropriate for the histochemical, immunohistochemical and immunofluorescence stain(s) in this case (if any), except where stated explicitly. The performance characteristics of the stain(s) cited in this report were developed and its performance characteristic determined by the Dermatopathology Laboratory at [facility], directed by Dr. Markos Jones. These tests need not be, and therefore are not, approved by the [place] Food and Drug Administration. The tests are used for clinical purposes. Billing Codes Specimen Charges Stain Charges 53691 1 0 3:45 PM CDT DERMATOPATHOLOGY LABORATORY Embedded Images 0 3:45 PM CDT DERMATOPATHOLOGY LABORATORY Pathology/Cytolog y TISSUE SPECIMEN FROM SKIN / Unknown 01/28/2020 01/28/2020 1:18 PM CDT Alexia Alvarado MD LAB - PATHOLOGY/CYTOLOGY ORDERABLES Final Result DERMATOPATHOLOGY LABORATORY [facility] - Department of Dermatology [address] [phone] documented in this encounter Visit Diagnoses Not on filedocumented in this encounter
--- OUTSIDE RECORDS SUMMARY | 2024-08-05 12:43 | XMS_ITS | Encounter Summary ---
Author Organization [facility] Address [address] [facility] [place] [address] Care Team Providers Care Investigations Consultant Name Role Phone Unavailable Primary Care Provider Unavailabl e Encounter Details Date Type Department Care Team (Late st Contact Info) Description 12/30/2019 Lab Requisition [facility] [address] [place] [phone] [place] [address] [place] [address] Social History Tobacco Use Types Packs/Day Years [...] Priority Date/Time Associated Diagnosis Comments DERMATOPATHOLOGY Routine 12/29/2019 12:0 0 AM CDT documented in this encounter Results * DERMATOPATHOLOGY (12/29/2019 12:00 AM CDT) Case Report Dermatopathology Report Case: [id number] Authorizing Provider: Alexia Alvarado MD Collected: 12/29/2019 12:00 AM Ordering Location: [facility] Received: 12/30/2019 12:52 PM Pathologist: Chanel Delgadillo MD Specimen: Skin, left proximal radial dorsal forearm 0 12:53 PM CDT DERMATOPATHOLOGY LABORATORY Final Diagnosis Specimen A. 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 . 0 12:53 PM CDT DERMATOPATHOLOGY LABORATORY Gross Description Specimen A: Received is one formalin filled container labeled with the patient's name and designated left proximal radial dorsal forearm. The specimen consists of a shave biopsy measuring [id number]. Jar 0. 0 12:53 PM CDT DERMATOPATHOLOGY LABORATORY Microscopic Description Specimen A. SKIN, left proximal radial dorsal forearm: The epidermis shows parakeratosis, full thickness disorderly maturation of keratinocytes, and dyskeratotic cells. 0 12:53 PM CDT DERMATOPATHOLOGY LABORATORY Disclaimer An external and internal positive and negative controls are appropriate for the histochemical, immunohistochemical and immunofluorescence stain(s) in this case (if any), except where stated explicitly. The performance characteristics of the stain(s) cited in this report were developed and its performance characteristic determined by the Dermatopathology Laboratory at [facility], directed by Dr. Markos Jones. These tests need not be, and therefore are not, approved by the [place] Food and Drug Administration. The tests are used for clinical purposes. Billing Codes Specimen Charges Stain Charges 76238 1 0 12:53 PM CDT DERMATOPATHOLOGY LABORATORY Embedded Images 0 12:53 PM CDT DERMATOPATHOLOGY LABORATORY Pathology/Cytolog y TISSUE SPECIMEN FROM SKIN / Unknown 12/29/2019 12/30/2019 12:52 PM CDT us Alexia Alvarado MD LAB - PATHOLOGY/CYTOLOGY ORDERABLES Final Result DERMATOPATHOLOGY LABORATORY [facility] - Department of Dermatology [address] [phone] documented in this encounter Visit Diagnoses Not on filedocumented in this encounter
--- OUTSIDE RECORDS SUMMARY | 2024-08-05 12:43 | XMS_ITS | Continuity of Care Document ---
Author Organization [facility] [place] Address [address] [facility] [address] [address] Phone Care Team Providers Care Field Property Loss Specialist Name Role Phone Elaine TONYA, Nelly Unavailable Unavailable Allergies, Adverse Reactions, Alerts Substance Reaction Status Criticality BRIMONIDINE TARTRATE Active No Info rmation TIMOLOL MALEATE Active No Informati on DORZOLAMIDE HCL Active No Informati on trimethoprim rash Active No Information sulfamethoxazole rash Active No Informat ion azithromycin rash Active No Information naproxen Active No Information trazodone Active No Information niacin Active No Information MEPERIDINE HCL Active No Informatio n clarithromycin Active No Informatio n ampicillin Active No Information Medications Medication Instructions Dosage Effective Dates (start - stop) Status Comments OLTNXGS-FLWAYMKIS-HMQ C (unknown strength) take 1 tablet once daily Not Available - Active doxepin 6 mg tablet take 1 tablet by oral route every day at night 30 minutes before bedtime on an empty stomach 6 MG - Active Pepcid 40 mg tablet take 1 tablet by oral route every day at bedtime 40 MG - Active estradiol 0.01% (0.1 mg/gram) vaginal cream insert (1G) by vaginal route every week 1 G - Active Vitamin C 1,000 mg tablet take 1 tablet once daily - Active biotin 1,000 mcg chewable tablet take 1 tablet once daily - Active Co Q-10 100 mg capsule take 1 tablet once daily - Active Finacea 15 % topical gel apply 1 gram by topical route every day a thin layer to the affected area(s) 1 gram - Active PROBIOTIC (unknown strength) take 2 capsule by oral route every day Not Available - Active Crestor 10 mg tablet take 1 tablet by oral route every day 10 MG - Active spironolactone 25 mg-hydrochlorothiazid e 25 mg tablet take 1 tablet by oral route every day 1.00 tablet - Active verapamil ER (SR) 180 mg tablet,extended release take 1 tablet (180MG) by oral route every day with food 180 MG - Active multivitamin capsule take 1 capsule by oral route every day - Active Procedures Procedure Date Refraction Corneal Pachymetry No Charge Optomap Fundus Photos 025 Eye Exam & Treatment Corneal Pachymetry Fundus Photography W/ Report Eye Exam & Treatment Corneal Pachymetry Fundus Photography W/ Report Office/outpatient Visit, Est No Charge Pachymetry Refraction Fundus Photography W/ Report Office/outpatient Visit, Est [facility] Eye Mask Eye Photography Office/outpatient Visit, Est Corneal Pachymetry Fundus Photography W/ Report Eye Exam & Treatment Fundus Photography W/ Report Corneal Pachymetry Eye Exam & Treatment No Charge Optomap Fundus Photos 021 Office/outpatient Visit, Est Fundus Photography W/ Report Corneal Pachymetry Eye Exam & Treatment Fundus Photography W/ Report Corneal Pachymetry Refraction Eye Exam & Treatment Meibomian Gland Expression Corneal Topography Fundus Photography W/ Report Office/outpatient Visit, Est Fundus Photography W/ Report Refraction Corneal Topography Corneal Pachymetry Office/outpatient Visit, Est No Charge Optomap Fundus Photos 018 No Charge Pachymetry SCODI, Retina Office/outpatient Visit, Est Meibomian Gland Expression Corneal Topography No Charge AScan No Charge Refraction Fundus Photography W/ Report Eye Exam & Treatment [employer] Meibomian Gland Expression Meibomian Gland Expression Meibomian Gland Expression Meibomian Gland Expression Refraction Fundus Photography W/ Report Corneal Pachymetry Eye Exam & Treatment Meibomian Gland Expression Meibomian Gland Expression Meibomian Gland Expression Corneal Pachymetry Fundus Photography W/ Report Eye Exam & Treatment Meibomian Gland Expression Meibomian Gland Expression Meibomian Gland Expression Meibomian Gland Expression Meibomian Gland Expression Meibomian Gland Expression Meibomian Gland Expression Meibomian Gland Expression Eye Exam & Treatment No Charge Refraction Corneal Pachymetry Fundus Photography W/ Report Office/outpatient Visit, Est Corneal Pachymetry Fundus Photography W/ Report Office/outpatient Visit, Est Refraction Fundus Photography W/ Report Visual Field Examination(s) No Charge Pachymetry Fundus Photography W/ Report Eye Exam, New Patient Advance Directives Directive Yes / No Effective Date File Name No Information Encounters Encounter Description Practice Location Reason(s) For Visit Diagnoses Date Provider Providers [facility], [address], [place], [place], [address], tel:[phone] SEC [place] Professional Complete Exam (chief complaint) Combined forms of age-related cataract, bilateralAmbl yopia, right eyeEndothelia l corneal dystrophy, bilateralMacu lar scar of right eyeMeibomian gland dysfnct right eye, upper and lower eyelidsMeibom tracey gland dysfnct left eye, upper and lower eyelidsVitreo us degeneration, bilateralOcul ar rosacea 5 Elaine OD Nelly. [facility] [address], [address], [place], [place], [address], . tel:[phone] Referring Provider: Travis Nicholas, [address], [place], [address] . tel:[phone] [facility], [address], [place], [place], [address], tel:[phone] SEC [place] Professional Complete Exam (chief complaint) Combined forms of age-related cataract, bilateralAmbl yopia, right eyeEndothelia l corneal dystrophy, bilateralMacu lar scar of right eyeMeibomian gland dysfnct right eye, upper and lower eyelidsMeibom tracey gland dysfnct left eye, upper and lower eyelidsVitreo us degeneration, bilateralOcul ar rosacea 4 Elaine OD Nelly. [facility] [address], [address], [place], [place], [address], . tel:[phone] Referring Provider: Travis Nicholas, [address], [place], [address] . tel:[phone] Office/outpa tient Visit, Est [facility], [address], [place], [place], [address], [place] tel:[phone] SEC [place] Professional Cornea Check (chief complaint) Endothelial corneal dystrophy, bilateralComb ined forms of age-related cataract, bilateralMacu lar scar of right eye 3 Elaine OD Nelly. [facility] [address], [address], [place], [place], [address], [place]. tel:[phone] Referring Provider: Travis Nicholas, [facility] [address], [place], [address] . tel:[phone] Office/outpa tient Visit, [facility] [address] [facility], [facility] [employer] [address], [place], [place], [address], [place] [phone] SEC [place] Professional 6 mo CAT check (chief complaint) Combined forms of age-related cataract, bilateralMacu lar scar of right eyeAmblyopia, right eyeLattice degeneration, bilateral Apr- 3 Stewart Powers. [address] [facility], [address], [place], [place], [address], [place]. tel:[phone] Referring Provider: Travis Nicholas, [facility] [address], [place], [address] . tel:[phone] Office/outpa tient Visit, [facility] [address] [facility], [facility], [facility] [employer] [address], [place], [place], [address], [place] tel:[phone] SEC [place] Dry eye evaluation (chief complaint) Ocular rosaceaMeibom tracey gland dysfunction (MGD), bilateral, both upper and lower lidsMeibomian gland dysfunction left eye, upper and lower eyelids 2 Elaine OD Nelly. [facility] [address], [address], [place], [place], [address], [place]. tel:[phone] Referring Provider: Travis Nicholas, [facility] [address], [place], [address] . tel:[phone] [facility] [address] [employer] [facility], [address], [place], [place], [address], tel:[phone] SEC Deniasukhwinder Ham Cataract evaluation (chief complaint) Endothelial corneal dystrophy, bilateralAge- related nuclear cataract, bilateralMacu lar scar of right eyeMeibomian gland dysfunction left eye, upper and lower eyelidsMeibom tracey gland dysfnct right eye, upper and lower eyelids 2 Mike Robles. [facility] [address], [address], [place], [place], [address], [place]. tel:[phone] Referring Provider: Travis Nicholas, [address], [place], [address] . tel:[phone] [facility] [address] [employer] [facility], [facility] [employer] [address], [place], [place], [address], tel:[phone] SEC Denia Ham Complete Exam (chief complaint) Macular scar of right eyeEndothelia l corneal dystrophy, bilateralComb ined forms of age-related cataract, bilateral 2 Mike Robles. [facility] [address], [address], [place], [place], [address], [place]. tel:[phone] Referring Provider: Travis Nicholas, [address], [place], [address] . tel:[phone] Office/outpa tient Visit, Est [facility] [address] [employer] [facility], [address], [place], [place], [address], tel:[phone] SEC Denia Ham WIE (chief complaint) Contusion of unspecified part of head, initial encounter 1 Mike Robles. [facility] [address], [address], [place], [place], [address], [place]. tel:[phone] Referring Provider: Travis Nicholas, [address], [place], [address] . tel:[phone] [facility], [facility] [address], [place], [place], [address], [place] tel:[phone] SEC [place] Professional Complete Exam (chief complaint) Age-related nuclear cataract, bilateralEndo thelial corneal dystrophy, bilateralMacu lar scar of right eye Dec-0 8202 0 Mike Travis. [facility] [address], [address], [place], [place], [address], [place]. tel:[phone] Referring Provider: Travis Nicholas, [facility] [address], [place], [address] . tel:[phone] [employer] [facility], [facility] [address], [place], [place], [address], [place] tel:[phone] SEC [place] Professional Complete Exam (chief complaint) Age-related nuclear cataract, bilateralEndo thelial corneal dystrophyMacu lar scar of right eyeMeibomian gland dysfnct right eye, upper and lower eyelidsMeibom tracey gland dysfnct left eye, upper and lower eyelids 9 Mike Travis. [facility] [address], [address], [place], [place], [address], [place]. tel:[phone] Referring Provider: Travis Nicholas, [facility] [address], [place], [address] . tel:[phone] [facility], [facility] [address], [place], [place], [address], [place] tel:[phone] SEC Denia Ham No Information 9 Spencer Gio. [address] [facility], [address], [place], [place], [address], [place]. tel:[phone] Referring Provider: Travis Nicholas, [facility] [address], [place], [address] . tel:[phone] Office/outpa tient Visit, Est [facility], [facility] [employer] [address], [place], [place], [address], [place] tel:[phone] SEC Denia N [place] floaters (chief complaint) Other vitreous opacities, left eyeAge-relate d nuclear cataract, bilateralEndo thelial corneal dystrophyMacu lar scar of right eye Mar-0 8-201 9 Mike Robles. [facility] [address], [address], [place], [place], [address], [place]. tel:[phone] Referring Provider: Travis Nicholas, [address], [place], [address] . tel:[phone] Office/outpa tient Visit, [facility], [facility] [employer] [address], [place], [place], [address], [place] tel:[phone] SEC [place] Professional Cataract/Co rnea ck (chief complaint) Endothelial corneal dystrophyMacu lar scar of right eyeAge-relate d nuclear cataract, bilateralOthe r vitreous opacities, left eye Oct-0 9-201 8 Mike Robles. [facility] [address], [address], [place], [place], [address], [place]. tel:[phone] Referring Provider: Travis Nicholas, [facility] [address], [place], [address] . tel:[phone] Office/outpa tient Visit, [facility] [employer] [facility], [address], [place], [place], [address], [place] tel:[phone] SEC [place] Cloudy vision and Floaters (chief complaint) Other vitreous opacities, left eyeVitreous degeneration, left eye Jw-0 6-201 8 Mike Travis. [facility] [address], [address], [place], [place], [address], [place]. tel:[phone] Referring Provider: Travis Nicholas, [address], [place], [address] . tel:[phone] [facility], [address], [place], [place], [address], [place] tel:[phone] SEC Denia Ham No Information 8 Mike Travis. [address], [address], [place], [place], [address], [place]. tel:[phone] Referring Provider: Travis Nicholas, [facility] [address], [place], [address] . tel:[phone] [facility], [address] [place] [address] [address], [place], [place], [address], [place] tel:[phone] SEC Yossi BARN[place] Professional Complete Exam (chief complaint) No Information 8 Marquette Travis. [facility] [address], [address], [place], [place], [address], [place]. tel:[phone] Referring Provider: Travis Nicholas, [facility] [address], [place], [address] . tel:[phone] [facility], [address], [place], [place], [address], [place] tel:[phone] SEC Denia Ham No Information 8 Mike Travis. [facility] [address], [address], [place], [place], [address], [place]. tel:[phone] Referring Provider: Travis Nicholas, [facility] [address], [place], [address] . tel:[phone] [facility], [address], [place], [place], [address], [place] tel:[phone] SEC Denia Ham No Information 8 Vadim Liriano. [address] [place], [address], [place]. tel:[phone] [facility], [address], [place], [place], [address], [place] tel:[phone] SEC Denia Holley Jitendra No Information 7 Travis Elizalde. [address] [facility], [address], [place], [place], [address], [place]. tel:[phone] Referring Provider: Travis Nicholas, [facility] [address], [place], [address] . tel:[phone] [facility], [address] [place] [address] [address], [place], [place], [address], [place] tel:[phone] SEC Yossi BARNARD Professional Complete Exam (chief complaint) No Information 7 Mike Robles. [facility] [address], [address], [place], [place], [address], [place]. tel:[phone] Referring Provider: Travis Nicholas, [facility] [address], [place], [address] . tel:[phone] [facility], [facility] [address], [place], [place], [address], [place] [phone] SEC Denia Ham MGE (chief complaint) No Information 6 Mike Robles. [facility] [address], [address], [place], [place], [address], [place]. tel:[phone] Referring Provider: Travis Nicholas, [facility] [address], [place], [address] . tel:[phone] [facility], [facility] [address], [place], [place], [address], [place] tel:[phone] SEC [place] Professional No Information 6 Mike Robles. [facility] [address], [address], [place], [place], [address], [place]. tel:[phone] Referring Provider: Travis Nicholas, [facility] [address], [place], [address] . tel:[phone] [facility], [address], [place], [place], [address], [place] tel:[phone] SEC Denia Ham No Information 6 Mike Robles. [address] [place] [address] [employer], [address], [place], [place], [address], [place]. tel:[phone] Referring Provider: Travis Nicholas, [address] [place] [address], [place], [address] . tel:[phone] [facility] [employer] [facility], [address] [place] [address] [address], [place], [place], [address], [place] tel:[phone] SEC [place] Professional complete exam (chief complaint) No Information 6 Mike Robles. [address] [place] [address] [employer], [address], [place], [place], [address], [place]. tel:[phone] Referring Provider: Travis Nicholas, [facility] [address], [place], [address] . tel:[phone] [facility], [address] [place] [address] [address], [place], [place], [address], [place] [phone] SEC [place]oss[place] Professional No Information 6 Jodi Hoffman. [address] [facility], [address], [place], [place], [address], [place]. tel:[phone] [facility], [address] [place] [address] [address], [place], [place], [address], [place] [phone] SEC Denia Ham No Information 5 Mike Robles. [address] [place], [place] [address], [address], [place], [place], [address], [place]. tel:[phone] Referring Provider: Travis Nicholas, [address] [place], [place] [address], [place], [address] . tel:[phone] [facility], [address], [place], [place], [address], tel:[phone] SEC [place] No Information 0 4- 5 Mike Robles. [address], [address], [place], [place], [address], [place]. tel:[phone] Referring Provider: Travis Nicholas, [facility] [address], [place], [address] . tel:[phone] [facility], [address], [place], [place], [address], tel:[phone] SEC Denia N Lindberg[place] No Information 9 5 Mike Robles. [address], [address], [place], [place], [address], . tel:[phone] Referring Provider: Travis Nicholas, [facility] [address], [place], [address] . tel:[phone] [facility], [address], [place], [place], [address], tel:[phone] SEC [place] N [place] No Information 5 Mike Robles. [facility] [address], [address], [place], [place], [address], [place]. tel:[phone] Referring Provider: Travis Nicholas, [address], [place], [address] . tel:[phone] [facility], [address], [place], [place], [address], tel:[phone] SEC Denia N [place]h No Information 3 0- 4 Mike Robles. [address], [address], [place], [place], [address], [place]. tel:[phone] Referring Provider: Travis Nicholas, [facility] [address], [place], [address] . tel:[phone] [facility], [address], [place], [place], [address], [place] tel:[phone] SEC [place] Professional Blurry vision (chief complaint) No Information 4 Mike Robles. [address], [address], [place], [place], [address], [place]. tel:[phone] Referring Provider: Travis Nicholas, [facility] [address], [place], [address] . tel:[phone] Office/outpa tient Visit, [facility], [address] [place] [address] [address], [place], [place], [address], tel:[phone] SEC [place] Professional No Information 4 Mike Robles. [facility] [address], [address], [place], [place], [address], [place]. tel:[phone] Referring Provider: Travis Nicholas, [facility] [address], [place], [address] . tel:[phone] Office/outpa tient Visit, [facility], [address] [place] [address] [address], [place], [place], [address], [place] tel:[phone] SEC [place] Professional No Information 4 Mike Robles. [facility] [address], [address], [place], [place], [address], [place]. tel:[phone] Referring Provider: Travis Nicholas, [facility] [address], [place], [address] . tel:[phone] [facility], [address] [place] [address] [address], [place], [place], [address], tel:[phone] SEC Yossi AKIL Professional No Information 3 Mike Robles. [address] [employer] [address], [address], [place], [place], [address], . tel:[phone] Referring Provider: Travis Nicholas, [address], [place], [address] . tel:[phone] Family History Family Member Type Diagnosis Age At Onset Problem (finding) Family history of Diabe radha mellitus Payers Payer name Insurance type Covered green party ID Authoriza tion(s) [employer] Mdcr Gold Adv Prime CI [id number] Social History Type Description Quantity Date Captured Comments Alcohol Use Details Caffeine Use Details and tea 2 cups per day Tobacco Use Status Current non-smoker Smoking Status Never smoker Non-Smoking Tobacco Use Details : No Details Available : No Details Available Sex Female Gender Identity Female Chief Complaint And Reason For Visit From encounter dated '07/30/2024 13:00'. Complete Exam (chief complaint). Description: The 73 year old patient presents for a complete exam ou. Monitoring Fuchs ou. Patient would like to get new glasses. Reason For Referral Reason For Referral No Information Plan Of Treatment Date Type Action Status Patient Education Cataracts: Care Instruc tions completed Patient Education Cataracts: Care Instruc tions completed Patient Education The Eye: Anatomy Sketch completed Patient Education Cataracts: Care Instruc tions completed Patient Education Rosacea: Care Instructi ons completed Patient Education Cataracts: Care Instruc tions completed Patient Education Cataracts: Care Instruc tions completed Patient Education Cataracts: Care Instruc tions completed Patient Education Cataracts: Care Instruc tions completed Patient Education Cataracts: Care Instruc tions completed History Of Present Illness Encounter Date Complaint History Of Prese nt Illness Complete Exam The 73 year old patient presents for a complete exam ou. Monitoring Fuchs ou. Patient would like to get new glasses. Complete Exam The 72 year old patient presents for a complete exam ou. Monitoring Fuchs ou and cataracts ou. Patient denies any changes in vision ou. Patient has a retinal scar OD. Cornea Check The 72 year old patient presents for evaluation of Cornea Check in the right eye and left eye. Pt state no changes in vision. Pt uses Padaday 1-2x a week in the morning when needed. 6 mo CAT check The 71 year old patient presents for evaluation of 6 mo CAT check with pachs in the right eye and left eye. Pt reports she use Pataday QAM OU and AFT QHS OU. Pt reports stable VA, OU, DV and NV, since last appt. Pt states she wants refraction done and is aware of fee. Dry eye evaluation The 71 year o ld patient presents for evaluation of Dry eye evaluation in the right eye and left eye. Pt. has h/o Fuchs' dystrophy OU, Cataracts OU, MGD OU, Rosacea, Mac. Scar OD, and Glaucoma suspect. Pt. states has been c/o of burning and itching off and on but symptoms really restart at allergy season. Pt. saw Dr. Urbina's in October 2021 and he recommended pt. to start Pataday OU qam. Pt. did go to Dry eye seminar and since has started using the Retaine OU qhs. Pt. also does use Vaseline to eyelids ou qhs. Pt. feels since seminar eyes are definitely feeling better. Pt. does have rosacea so is very careful what she puts on her face. Pt. also does take Claritin and Flonase for her allergies.. Pt. did stop while on vacation last week and hasn't taken in over a week but has continued to use the Retaine OU qhs. Speed score 7/28TBUT OD 3.06 OS 8.22 Cataract evaluation The 71 year old patient presents for a cataract evaluation ou. Patient has hx of retinal scar OD and Fuchs ou. Patient states things are getting a little more blurry. Patient c/o her eyelids are burning and her eyes feel swollen. Complete Exam The 70 year old female presents for a complete exam ou monitoring Fuchs ou and cataracts ou. Patient has hx of retinal scar OD. Patient denies any changes in vision ou. Patient is a glaucoma suspect ou. WIE The 69 year old female presents for a WIE. Patient states last Saturday she had a fall helping her move a generator and fell and hit her head on the floor and hit the left side. Patient denies any changes in vision. Patient went to the ER on per her PCP. Patient states they did a CT scan and EKG. Patient states her left eye is her good eye and just wanted reassurance. Patient has some bruising on the side of her head. Complete Exam The 69 year old female presents for a complete exam ou monitoring Fuchs and cataracts ou. Patient is a glaucoma suspect ou. Patient denies any changes in vision ou. Patient got new glasses from last visit. Complete Exam The 68 year old female presents for evaluation of Complete Exam with Optomap and pachs in the right eye and left eye. Hx of CAT OU, Fuch's OU, floaters OU, MGD OU, Glaucoma suspect OU, Retinal Scar OD, and Rosacea. Pt reports she has trouble driving at night and recognizing people's faces from across the street, OU, x 6 mos. Pt reports she uses AFT PRN OU and no pain or irritation today, OU. floaters The 67 year old female presents for evaluation of floaters in the left eye. Pt notes she fell 3 weeks ago and hit her head, states she is noticing a gradual increased amount of floaters that is more than normal os, denies any va loss or flashes of light. PT is leaving the country in 1 week and wanted to have peace of mind. Hx of Cataracts OU, Fuchs OU, MGD OU, Glc Susp OU, Retinal Scar OD, Vitreous Degen OS, Endothelial corneal dystrophy, and Rosacea Cataract/Cornea ck The 67 year o ld female presents for evaluation of Cataract/Cornea ck in the right eye and left eye. Hx of Cataracts OU, Fuchs OU, MGD OU, Glc Susp OU, Retinal Scar OD, Vitreous Degen OS, and Rosacea. Pt states VA blurry, like looking through a fog. Pt states difficult to drive at night due to headlight glare, having to get closer to street signs to see them clearly, difficult to see TV, and difficult to see small print. DVA and NVA gradual decrease OU x 6 mos. Pt using Retaine OU prn and eye lid massage. Cloudy vision and Floaters The [age] year old female presents for evaluation of Cloudy vision and Floaters in the left eye. Hx of Cataracts OU, Fuchs OU, MGD OU, Glc Susp OU, Retinal Scar OD, and Rosacea. Pt states that on Saturday she started seeing additional floaters and vision was foggy. Pt went to bed thinking her eyes were tired, but the floaters and burred vision were still there the next day. Pt denies flashes of light. Pt is having a difficult time reading signs in restaurant. Complete Exam The 66 year old female presents for evaluation of Complete Exam in the right eye and left eye. HX Cataracts OU, Fuchs OU. Pt states she is having trouble with DVA x 2 mos. Pt has trouble with glare OU at night, trouble with fine near work and recognizing peoples faces Complete Exam The 65 year old female presents for Complete Exam in the right eye and left eye monitoring Fuchs ou and cataracts ou. .Patient denies any changes in vision ou but thinks she needs new glasses. MGE The 65 year old female presents for MGE in the right eye and left eye. complete exam The 64 year old female presents for complete exam. Hx of Fuchs OU, trauma OD as a child, macular scars OD, cataracts OU, MGD OU, Rosecea, and OAG OU. Patient reports vision slightly decreased OS. Patient currently uses blink tears prn for dry eyes. Pt reports bump RUL x 6 months and would like evaluated. Patient declines refraction today. Blurry vision The 63 year old female presents for a 6 month complete exam. Pt states that she feels vision has changed since last visit, distance and upclose. Pt is using new face cream for Rosecea Finacea and Elidel, and pt would like to know if that would be causing vision changes at all. Pt Hx of Fuch's OU, Macular Scars, Cataracts. Functional Status Date Functional Assessmen t No Information Instructions Date Instruction Additional Infor reyes Impression/Plan Impression/Plan Impression/Plan Impression/Plan Impression/Plan Impression/Plan Impression/Plan Impression/Plan Impression/Plan Impression/Plan Impression/Plan Impression/Plan Impression/Plan Impression/Plan Surgery not indicated now. Relat ed to Age-related nuclear cataract, right eye Follow up - 1 yr complete exam Impression/Plan - Ca taract presence discussed and symptoms of progression explained, not visually significant to patient. Pt was instructed to return to the office sooner if vision worsens. Pt needs BAT and BCVA on return prior to dilation. Fuchs stable. New spec Rx given to pt. Impression/Plan - Di agnosis discussed in detail with patient. Explained the bump she has been noticing RUL is a Seborrheic Keratosis. Fuch's Dystrophy and Cataracts are stable at this time, as well as her IOP. No treatment is needed at this time. We will continue to monitor condition and/or symptoms. Nuclear sclerosis of both eyes - Written educational material given. Related to Nuclear sclerosis of both eyes Follow up - 1 year complete exam - 1 yr complete Related to See l ist of assessments above - OU: Discussed diag nosis in detail with patient. No treatment is required at this time. Will continue to observe condition and or symptoms. Call if VA worsens. Rec local care, warm compress and massage. Discussed Mge wit tech. Ok to sched OU on same day if desired. Ok to continue with meds for Rosacea. Related to See list of assessments above Meibomian gland dysf unction - Warm compress and massage Related to Meibomian gland dysfunction - 6 Months Related to See i mpression: general plan General plan -ENDOTH EL CORNEA DYSTRPHY -MACULAR SCARS NEC -Incipient cataract - OU: Discussed diagnosis in detail with patient. No treatment is required at this time. Will continue to observe condition and or symptoms. Call if VA worsens. Discussed risks of progression. Educational materials provided:about today's exam. Related to See impression: general plan - 3-4 months cornea check/iop ch sheri Related to ENDOTHEL CORNEA DYSTRPHY OPN ANGL W BORDERLN FIND Low Risk OU MACULAR SCARS NEC OD ENDOTHEL CORNEA DYSTRPHY OU - Discussed dx with pt. Discussed IOP and corneal thickness. Pt will need Pachs at all visits to monitor progression. Discussed spec wear with pt. Pt would like refraction today for sunglasses. Discussed PAL with pt and explained this may take some time to adjust. Will have tech refract and give RX. Educational materials provided:about today's exam. Related to ENDOTHEL CORNEA DYSTRPHY - 3 months IOP check Related to See impression: general plan General plan -OPN AN GL W BORDERLN FIND Low Risk -MACULAR SCARS NEC - discussed dx with pt, and treatment options. Discussed continuing without medications and monitoring IOP closer without medications. Discussed low risks of visual loss with the size of her ON. Discussed visual loss with mac scar OD, Pt unable to tolerate many IOP gtts she has tried in the past. Discussed corneal thickness with pt, discussed risk factors of corneal disease. Will monitor pt. Pt wants a refraction today for new specs. Educational materials provided:about today's exam. 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
--- OUTSIDE RECORDS SUMMARY | 2024-08-05 12:43 | XMS_ITS | Encounter Summary ---
Author Organization [facility] Address [address] [place] [address] Care Team Providers Care Chief I Dispatcher Name Role Phone Unavailable Primary Care Provider Unavailabl e Encounter Details Date Type Department Care Team (Late st Contact Info) Description 09/29/2019 Lab Requisition [facility] D[facility] [address] [place] [id number] [place] [address] [place] [address] Social History Tobacco Use Types Packs/Day Years [...] Priority Date/Time Associated Diagnosis Comments DERMATOPATHOLOGY Routine 09/28/2019 12:0 0 AM CDT documented in this encounter Results * DERMATOPATHOLOGY (09/28/2019 12:00 AM CDT) Case Report Dermatopathology Report Case: [id number] Authorizing Provider: Alexia Alvarado MD Collected: 09/28/2019 12:00 AM Ordering Location: [facility] Derm[facility] Lab Received: 09/29/2019 01:10 PM Pathologist: Eugenie Crespo MD Specimen: Skin, right proximal pretibial region 0 3:06 PM CDT DERMATOPATHOLOGY LABORATORY Final Diagnosis Specimen A. SKIN, right proximal pretibial region: SEBORRHEIC KERATOSIS, MACULAR (L82.1) 0 3:06 PM CDT DERMATOPATHOLOGY LABORATORY Clinical History Inflamed seborrheic keratosis. . 0 3:06 PM CDT DERMATOPATHOLOGY LABORATORY Gross Description Specimen A: Received is one formalin filled container labeled with the patient's name and designated right proximal pretibial region. The specimen consists of a shave biopsy (2 pieces) measuring [id number] & [id number]. Jar 0. 0 3:06 PM CDT DERMATOPATHOLOGY LABORATORY Microscopic Description Specimen A. SKIN, right proximal pretibial region: Sections show a relatively broad, flat proliferation of small keratinocytes. The surface is gently papillated, and there is increased basilar pigmentation. 0 3:06 PM CDT DERMATOPATHOLOGY LABORATORY Disclaimer An external and internal positive and negative controls are appropriate for the histochemical, immunohistochemical and immunofluorescence stain(s) in this case (if any), except where stated explicitly. The performance characteristics of the stain(s) cited in this report were developed and its performance characteristic determined by the Dermatopathology Laboratory at [facility], directed by Dr. Markos Jones. These tests need not be, and therefore are not, approved by the [place] Food and Drug Administration. The tests are used for clinical purposes. Billing Codes Specimen Charges Stain Charges 30752 1 0 3:06 PM CDT DERMATOPATHOLOGY LABORATORY Embedded Images 0 3:06 PM CDT DERMATOPATHOLOGY LABORATORY Pathology/Cytolog y TISSUE SPECIMEN FROM SKIN / Unknown 09/28/2019 09/29/2019 1:10 PM CDT us Alexia Alvarado MD LAB - PATHOLOGY/CYTOLOGY ORDERABLES Final Result DERMATOPATHOLOGY LABORATORY [facility] - Department of Dermatology [address] [place] [address], [facility] [phone] documented in this encounter Visit Diagnoses Not on filedocumented in this encounter
--- OUTSIDE RECORDS SUMMARY | 2024-08-05 12:43 | XMS_ITS | Referral Summary ---
Author Organization [facility] [address] [facility] Address [address] [place] [address] Care Team Providers Care Secretary Name Role Phone True Bangura MD Primary Care Provider [phone] Encounters Date Type Department Care Team Description 06/30/2024 2:00 PM CDT Office Visit [facility] Primary Care at [address] [address] True Bangura MD Mixed hyperlipidemia (Primary Dx); Essential hypertension; Interstitial lung disease (HCC); Non-allergic eosinophilic rhinitis (NARES); Encounter for screening mammogram for malignant neoplasm of breast; Asymptomatic menopausal state; Asymmetric SNHL (sensorineural hearing loss); BMI 31.0-31.9,adult; Obesity (BMI 30.0-34.9) 05/26/2024 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 TEACHER Office Visit [facility] [address] [facility] [address] [place] [id number] Josue Estrella MD Well woman exam (Primary Dx) 05/18/2024 10:45 AM ORCHESTRA TEACHER Anesthesia Event [address] [address] Jason Yañez MD McDowell, Juri Osmell, MD 05/18/2024 10:00 AM ORCHESTRA TEACHER - 05/18/2024 10:30 AM ORCHESTRA TEACHER Surgery [address] [address] Bradly Marr MD COLONOSCOPY 05/18/2024 9:03 AM ORCHESTRA TEACHER - 05/18/2024 12:05 PM ORCHESTRA TEACHER Hospital Encounter [facility] [address] [place] [address] Bradly Marr MD Discharge Disposition: Discharge to home or self care from Last 3 Months Allergies Active Allergy Reactions Criticality Noted Date [...] 0 0 06/21/19 16 Active glucosam wang zox-oxmzthkel-X -Mn (GLUCOSAMINE-CH ONDROITIN) [id number] mg tablet BID 0 0 12/22/19 15 [...] Assessment & Plan (06/30/2024 2:33 PM CDT): [id number] f/u with Dr. Lamb and hearing aid evlauaprince. Assessment & Plan (01/07/2024 10:28 AM CDT): COnbtinue f/u with ENT and audiology. [facility] MRI of the area to r/o intracranial [...] change in CT scna completed yesterday at [facility]. Refused pneumococcal vaccination 06/16/2018 Refused influenza vaccine [...] (10/15/2018): Added automatically from request for surgery [id number] Immunizations Immunization Administration Dates Next Due COVID-19 mRNA (Pharmalink) 0.3 m L (30 mcg) vaccine (12 [...] Refused),01/01/2023(Deferred: Patient Refused),01/20/2021,04/22/2020(Deferre d: Patient Refused),01/21/2020,02/13/2019, 017,02/19/2017 BevyUp SARS-CoV-2 Monovalent Vaccination (12+ Yrs) PURPLE 11/14/2021,05/03/2020,04/12/2020 Pneumococcal Conjugate PCV 13 01/31/2016, 016 Pneumococcal Polysaccharide PPV23 02/19/2017, RSV Vaccine, Pref, Recombina nt, Subunit, Adjuvanted, PF, IM (Arexvy) 02/13/2023 Sars-cov-2 Covid-19 Mrna, Bi valent, Original/omicron Ba.1 02/05/2023 TD Preservative Free 01/29/2006 Tdap 08/19/2020 ZOSTER LIVE 02/01/2010,02/01/2010 Social History Tobacco Use Types Packs/Day Years [...] on file Legal Sex Female 9:17 PM ORCHESTRA TEACHER Gender Identity Not on file Sexual Orientation Not on file Last Filed Vital Signs Vital Sign Reading Time Taken Comments Blood Pressure 136/82 06/30/2024 2:07 PM CDT Pulse 79 06/30/2024 2:07 PM CDT Temperature 36.8 C (98.2 F) 06/30/2024 2:07 PM CDT Respiratory Rate 16 05/18/2024 11:5 0 AM ORCHESTRA TEACHER Oxygen Saturation 98% 06/30/2024 2:07 PM CDT Inhaled Oxygen Concentration - - Weight 85.2 kg (187 lb 12.8 oz) 06/30/2024 2:07 PM CDT Height 165.1 cm (5' 5 ) 06/30/2024 2:07 PM CDT Body Mass Index 31.25 06/30/2024 2:07 PM CDT Plan of Treatment Not on file Procedures Procedure Name Priority Date/Time Associated Diagnosis Comments COLONOSCOPY 05/18/2024 10:40 AM ORCHESTRA TEACHER History of colonic polyps Encounter for screening colonoscopy Family history of colon cancer COLONOSCOPY 05/18/2024 9:11 AM ORCHESTRA TEACHER SCREENING MAMMOGRAM BILATERAL W SIMONE Schedule Routine, Read Routine (OP Routine) 09/03/2023 DEXA AXIAL SKELETON BONE DENSITY 1 OR MORE SITES Schedule Routine, Read Routine (OP Routine) 06/27/2022 Asymptomatic menopausal state from Last 3 Months or Most Recently Relevant to Health Maintenance Results * Colonoscopy (05/18/2024 9:11 AM ORCHESTRA TEACHER) Anatomical Region Laterality Modality Other Narrative Procedure Note Bradly Marr MD - 05/18/2024 9:11 AM CST [facility] Patient Name: Elham Benedict Procedure Date: 05/18/2024 9:11 AM Date of : 1950 Admit Type: Outpatient Age: 73 Gender: Female Attending MD: Bradly Marr M.D. Room: [facility] ENDOSCOPY ROOM 1 Note Status: Finalized Patient [...] under direct vision. The Pediatric Colonoscope [id number]-[id number] was introducedthrough the anus and advanced to [...] polyps K64.8, Other hemorrhoids CPT copyright 2020 [employer]. All rights reserved. The codes documented in this report are preliminary and upon spinning lathe operator reviewmay be revised to meet current compliance requirements. Recognized by the [employer] for promoting quality [...] Most Recently Relevant to Health Maintenance Insurance [facility] MEDICARE [facility] Address: [address] [address] [place] [address] [facility] Advance Directives For more information, please contact: [phone] * Full Code (Latest Code Status on File) Date Activated Date Inactivated Comments 05/18/2024 9:16 AM 05/18/2024 4:11 PM * Full Code Date Activated Date Inactivated Comments 05/18/2024 9:16 AM 05/18/2024 9:16 AM * Full Code Date Activated Date Inactivated Comments 12/05/2018 7:48 AM 12/05/2018 1:56 PM * Full Code Date Activated Date Inactivated Comments 12/05/2018 7:48 AM 12/05/2018 7:48 AM Care Teams Secretary Relationship Specialty Start Date End Date True Bangura MD [address] [place] [address] PCP - General 3/31/17
--- OUTSIDE RECORDS SUMMARY | 2024-08-05 12:43 | XMS_ITS | Clinical Summary ---
Author Organization [facility] Address [address] [place] [address] Care Team Providers Care Wardrobe Supervisor Name Role Phone Unavailable Primary Care Provider Unavailabl e Source Comments [facility],non-owned Affiliates and Associated Physician Practices is amultiple site organization consisting of ambulatory clinics and hospital sitesin [place], [place], [place] and [place]. This disclosure is being madepursuant to the Care Everywhere program and may not contain all information available regarding this patient. Last updated 18.[facility] [employer] Social History Tobacco Use Types Packs/Day Years Used Date Smoking Tobacco: Never Assessed Comments Unknown Sex and Gender Information Value Date Recorded Sex Assigned at Not on file Legal Sex Female 12:57 PM CDT Gender Identity Not on file Sexual Orientation Not on file Plan of Treatment Health Maintenance Due Date Last Done Comments BONE DENSITY TESTING 1950 COLOGUARD (AGES 45-75) - COL ON CA SCREENING 1950 COLON MONITORING 1950 COLONOSCOPY - COLON CA SCREENING 1950 CT COLONOGRAPHY - COLON CA SCREENING 1950 Colorectal Cancer Screening 1950 FIT - COLON CA SCREENING 1950 FLEX SIG - COLON CA SCREENING 1950 LIPID TESTING 1950 MAMMOGRAM 1950 HEPATITIS C SCREENING 08/07/1967 DTAP/TDAP/TD VACCINES (1 - Tdap) 1968 PNEUMOCOCCAL VACCINE 50+ (1 of 1 - PCV) 08/12/1999 ZOSTER VACCINE (1 of 2) 08/12/1999 COVID-19 VACCINE ( - 2023-2 5 season) 2023 DEPRESSION SCREENING 04/22/2024 MEDICARE AWV CALENDAR YEAR 2024 Respiratory Syncytial Virus (RSV) Vaccine Pt: or over 60 yrs (1 - 1-dose 75+ series) 2024 INFLUENZA VACCINE (Season Ended) 2024 HEPATITIS B VACCINE Aged Out No longe r eligible based on patient's age to complete this topic HIB VACCINE Aged Out No longer eligi ble based on patient's age to complete this topic HPV VACCINE Aged Out No longer eligi ble based on patient's age to complete this topic MENINGOCOCCAL (Group B) VACC INE SHARED DECISION-MAKING Aged Out No longer eligibl e based on patient's age to complete this topic MENINGOCOCCAL GROUPS A/C/Y/W VACCINE Aged Out No longer eligible b ased on patient's age to complete this topic Insurance [employer] MANAGED MEDICARE ADV
== END 2024-08-05 11:19 | disposition home or self-care (01) ==
PROVIDERS: PCP Family Medicine; Visit Provider Podiatrist Foot & Ankle Surgery
DX: B35.1 Tinea unguium (principal)
CPT/HCPCS: 36415; 84450; 84460

== ENCOUNTER 2024-10-01 15:03 | Outpatient (CLI) | payer MEDICARE, SELFPAY ==
--- NOTE | ~2024-10-01 | MM_ITS ---
EXAMINATION: MM screening bear BI w na HISTORY: Screening TECHNIQUE: Craniocaudal and mediolateral oblique 3-D tomosynthesis images were obtained and synthetic 2-D images were generated. CAD analysis was submitted and interpreted. COMPARISON: Comparison to multiple prior studies sequentially, with oldest reviewed study dated 11/2018. BREAST PARENCHYMAL COMPOSITION: Not dense: There are scattered areas of fibroglandular density. FINDINGS: There is no evidence of suspicious mass, calcification, or architectural distortion to sugg est malignancy in either breast. There has been no suspicious interval change. IMPRESSION: 1. No mammographic evidence of malignancy. 2. Recommend routine screening mammography in one year. BI-RADS Category 1: Negative Reviewed, dictated and finalized at location B.
--- OUTSIDE RECORDS SUMMARY | 2024-10-01 15:39 | XMS_ITS | Encounter Summary ---
Author Organization [facility] Address [address] [place] [address] Care Team Providers Care Broadcast Maintenance Engineer Name Role Phone Unavailable Primary Care Provider Unavailabl e Encounter Details Date Type Department Care Team (Late st Contact Info) Description 09/29/2019 Lab Requisition [facility] DermPath Lab [address] [place] [id number] [place] [address] [place] [address] Social History Tobacco Use Types Packs/Day Years [...] AM CDT) Case Report Dermatopathology Report Case: [id number] Authorizing Provider: Alexia Alvarado MD Collected: 09/28/2019 12:00 AM Ordering Location: [facility] DermPath Lab Received: 09/29/2019 01:10 PM Pathologist: Eugenie Crespo MD Specimen: Skin, right proximal pretibial region 0 3:06 PM CDT DERMATOPATHOLOGY LABORATORY Final Diagnosis Specimen A. SKIN, right proximal pretibial region: SEBORRHEIC KERATOSIS, MACULAR (L82.1) 0 3:06 PM CDT DERMATOPATHOLOGY LABORATORY at 1506 CDT Clinical History Inflamed seborrheic keratosis. . 0 3:06 PM CDT DERMATOPATHOLOGY LABORATORY Gross Description Specimen A: Received is one formalin filled container labeled with the patient's name and designated right proximal pretibial region. The specimen consists of a shave biopsy (2 pieces) measuring [id number] & [id number]. Jar 0. 0 3:06 PM CDT DERMATOPATHOLOGY [...] characteristic determined by the Dermatopathology Laboratory at [facility], directed by Dr. Markos Jones. These tests need not be, and therefore are not, approved by the [place] Food and Drug Administration. The tests are used for clinical purposes. Billing Codes Specimen Charges Stain Charges 59837 1 0 3:06 PM CDT DERMATOPATHOLOGY LABORATORY Embedded Images 0 3:06 PM CDT DERMATOPATHOLOGY LABORATORY Pathology/Cytolog y TISSUE SPECIMEN FROM SKIN / Unknown 09/28/2019 09/29/2019 1:10 PM CDT us Alexia Alvarado MD LAB - PATHOLOGY/CYTOLOGY ORDERABLES Final Result DERMATOPATHOLOGY LABORATORY [facility] - Department of Dermatology [address] [address], [facility] [phone] documented in this encounter Visit Diagnoses Not on filedocumented in this encounter
--- OUTSIDE RECORDS SUMMARY | 2024-10-01 15:39 | XMS_ITS | Clinical Summary ---
Author Organization [facility] Address [address] [place] [address] Care Team Providers Care Weight Count Operator Name Role Phone Unavailable Primary Care Provider Unavailabl e Source Comments [facility],non-owned Affiliates and Associated Physician Practices is amultiple site organization consisting of ambulatory clinics and hospital sitesin [place], [place], [place] and [place]. This disclosure is being madepursuant to the Care Everywhere program and may not contain all information available regarding this patient. Last updated 18.[facility] [employer] Social History Tobacco Use Types Packs/Day Years [...] 2023-2 5 season) 2023 DEPRESSION SCREENING 04/22/2024 Respiratory Syncytial Virus (RSV) Vaccine Pt: or [...]
--- OUTSIDE RECORDS SUMMARY | 2024-10-01 15:39 | XMS_ITS | Encounter Summary ---
Author Organization [facility] Address [address] [place] [address] Care Team Providers Care Product Marketing Specialist Name Role Phone Unavailable Primary Care Provider Unavailabl e Encounter Details Date Type Department Care Team (Late st Contact Info) Description 01/28/2020 Lab Requisition [facility] DermPath Lab [address] [place] [phone] [place] [address] [place] [address] Social History Tobacco Use Types Packs/Day Years [...] AM CDT) Case Report Dermatopathology Report Case: [id number] Authorizing Provider: Alexia Alvarado MD Collected: 01/28/2020 12:00 AM Ordering Location: [facility] DermPath Lab Received: 01/28/2020 01:18 PM Pathologist: Joselito Jones MD Specimen: Skin, left anterior distal upper arm 0 3:45 PM CDT DERMATOPATHOLOGY LABORATORY Final Diagnosis Specimen A. 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 Markos Jones. These tests need not be, and therefore are not, approved by the [place] Food and Drug Administration. The tests are used for clinical purposes. Billing Codes Specimen Charges Stain Charges 93534 1 0 3:45 PM CDT DERMATOPATHOLOGY LABORATORY Embedded Images 0 3:45 PM CDT DERMATOPATHOLOGY LABORATORY Pathology/Cytolog y TISSUE SPECIMEN FROM SKIN / Unknown 01/28/2020 01/28/2020 1:18 PM CDT Alexia Alvarado MD LAB - PATHOLOGY/CYTOLOGY ORDERABLES Final Result DERMATOPATHOLOGY LABORATORY [facility] - Department of Dermatology [address], [address] [phone] documented in this encounter Visit Diagnoses Not on filedocumented in this encounter
--- OUTSIDE RECORDS SUMMARY | 2024-10-01 15:39 | XMS_ITS | Continuity of Care Document ---
Author Organization [facility] Address [address] [facility] [address] [address] Phone Care Team Providers Care Linen Worker Name Role Phone Elaine TONYA, Nelly Unavailable [...] Effective Dates (start - stop) Status Comments LHCBVBS-MOPPEZYTK-BAD C (unknown strength) take 1 tablet once daily Not Available - Active doxepin 6 mg tablet take 1 tablet by oral route every day at night 30 minutes before bedtime on an empty stomach 6 MG - Active estradiol 0.01% (0.1 mg/gram) vaginal cream insert (1G) by vaginal route every week 1 G - Active Pepcid 40 mg tablet take 1 tablet by oral route every day at bedtime 40 MG - Active Co Q-10 100 mg capsule take 1 tablet once daily - Active biotin 1,000 mcg chewable tablet take 1 tablet once daily - Active Vitamin C 1,000 mg tablet [...] Diagnoses Date Provider Providers Copied on [facility]counter [facility], [address], [place], [place], [address], tel:[phone] SEC [place] Professional Complete Exam (chief complaint) Combined forms of age-related cataract, bilateralAmbl yopia, right eyeEndothelia l corneal dystrophy, bilateralMacu lar scar of right eyeMeibomian gland dysfnct right eye, upper and lower eyelidsMeibom tracey gland dysfnct left eye, upper and lower eyelidsVitreo us degeneration, bilateralOcul ar rosacea 5 Elaine OD Nelly. [facility] [address], [address], [place], [place], [address], . tel:[phone] Referring Provider: Travis Nicholas, [address], [place], [address] . tel:[phone] [facility], [facility], [address], [place], [place], [address], tel:[phone] [place] Professional Complete Exam (chief complaint) Combined forms of age-related cataract, bilateralAmbl yopia, right eyeEndothelia l corneal dystrophy, bilateralMacu lar scar of right eyeMeibomian gland dysfnct right eye, upper and lower eyelidsMeibom tracey gland dysfnct left eye, upper and lower eyelidsVitreo us degeneration, bilateralOcul ar rosacea 4 Elaine OD Nelly. [facility] [address], [address], [place], [place], [address], . tel:[phone] Referring Provider: Travis Nciholas, [address], [place], [address] . tel:[phone] Office/outpa tient Visit, Est [place] [employer] [place], [address], [place], [place], [address], [place] tel:[phone] [place] Professional Cornea Check (chief complaint) Endothelial corneal dystrophy, bilateralComb ined forms of age-related cataract, bilateralMacu lar scar of right eye 3 Elaine OD Nelly. [facility] [address], [address], [place], [place], [address], [place]. tel:[phone] Referring Provider: Travis Nicholas, [facility] [address], [place], [address] . tel:[phone] Office/outpa tient Visit, [facility] [employer] [facility], [facility], [facility] [address], [place], [place], [address], [place] [phone] [place] Professional 6 mo CAT check (chief complaint) Combined forms of age-related cataract, bilateralMacu lar scar of right eyeAmblyopia, right eyeLattice degeneration, bilateral Apr- 3 Stewart Powers. [address] [facility], [address], [place], [place], [address], [place]. tel:[phone] Referring Provider: Travis Nicholas, [facility] [address], [place], [address] . tel:[phone] Office/outpa tient Visit, [facility] [employer] [facility], [facility], [facility] [address], [place], [place], [address], [place] tel:[phone] [place] Dry eye evaluation (chief complaint) Ocular rosaceaMeibom tracey gland dysfunction (MGD), bilateral, both upper and lower lidsMeibomian gland dysfunction left eye, upper and lower eyelids 2 Elaine OD Nelly. [facility] [address], [address], [place], [place], [address], [place]. tel:[phone] Referring Provider: Travis Nichoals, [facility] [address], [place], [address] . tel:[phone] [facility] [employer] [facility], [address], [place], [place], [address], tel:[phone] SEC [place] Cataract evaluation (chief complaint) Endothelial corneal dystrophy, bilateralAge- related nuclear cataract, bilateralMacu lar scar of right eyeMeibomian gland dysfunction left eye, upper and lower eyelidsMeibom tracey gland dysfnct right eye, upper and lower eyelids 2 Mike Robles. [facility] [address], [address], [place], [place], [address], [place]. tel:[phone] Referring Provider: Travis Nicholas, [address], [place], [address] . tel:[phone] [facility] [employer] [facility], [facility] [address], [place], [place], [address], tel:[phone] SEC [place] Ham Complete Exam (chief complaint) Macular scar of right eyeEndothelia l corneal dystrophy, bilateralComb ined forms of age-related cataract, bilateral 2 Mike Robles. [facility] [address], [address], [place], [place], [address], [place]. tel:[phone] Referring Provider: Travis Nicholas, [address], [place], [address] . tel:[phone] Office/outpa tient Visit, [facility] [employer] [facility], [address], [place], [place], [address], tel:[phone] SEC [place] Ham WIE (chief complaint) Contusion of unspecified part of head, initial encounter 1 Mike Robles. [facility] [address], [address], [place], [place], [address], [place]. tel:[phone] Referring Provider: Travis Nicholas, [address], [place], [address] . tel:[phone] [facility], [facility] [address], [place], [place], [address], [place] tel:[phone] [place] Professional Complete Exam (chief complaint) Age-related nuclear cataract, bilateralEndo thelial corneal dystrophy, bilateralMacu lar scar of right eye Dec-0 8202 0 Mike Travis. [facility] [address], [address], [place], [place], [address], [place]. tel:[phone] Referring Provider: Travis Nicholas, [facility] [address], [place], [address] . tel:[phone] [facility], [facility] [address], [place], [place], [address], [place] tel:[phone] [place] Professional Complete Exam (chief complaint) Age-related nuclear cataract, bilateralEndo thelial corneal dystrophyMacu lar scar of right eyeMeibomian gland dysfnct right eye, upper and lower eyelidsMeibom tracey gland dysfnct left eye, upper and lower eyelids 9 Mike Travis. [facility] [address], [address], [place], [place], [address], [place]. tel:[phone] Referring Provider: Travis Nicholas, [facility] [address], [place], [address] . tel:[phone] [facility], [facility] [address], [place], [place], [address], [place] tel:[phone] SEC Denia Ham No Information 9 [place] Gio. [address] [facility], [address], [place], [place], [address], [place]. tel:[phone] Referring Provider: Travis Nicholas, [facility] [address], [place], [address] . tel:[phone] Office/outpa tient Visit, Est [facility], [facility] [address], [place], [place], [address], [place] tel:[phone] SEC Denia N [place] floaters (chief complaint) Other vitreous opacities, left eyeAge-relate d nuclear cataract, bilateralEndo thelial corneal dystrophyMacu lar scar of right eye Mar-0 8-201 9 Mike Robles. [facility] [address], [address], [place], [place], [address], [place]. tel:[phone] Referring Provider: Travis Nicholas, [address], [place], [address] . tel:[phone] Office/outpa tient Visit, [facility], [facility] [address], [place], [place], [address], [place] tel:[phone] [place] Professional Cataract/Co rnea ck (chief complaint) Endothelial corneal dystrophyMacu lar scar of right eyeAge-relate d nuclear cataract, bilateralOthe r vitreous opacities, left eye Oct-0 9-201 8 Mike Robles. [facility] [address], [address], [place], [place], [address], [place]. tel:[phone] Referring Provider: Travis Nicholas, [facility] [address], [place], [address] . tel:[phone] Office/outpa tient Visit, [facility], [address], [place], [place], [address], [place] tel:[phone] [place] Cloudy vision and Floaters (chief complaint) Other vitreous opacities, left eyeVitreous degeneration, left eye Jw-0 6-201 8 Mike Travis. [facility] [address], [address], [place], [place], [address], [place]. tel:[phone] Referring Provider: Travis Nicholas, [address], [place], [address] . tel:[phone] [facility], [address], [place], [place], [address], [place] tel:[phone] SEC [place] Ham No Information 8 Mike Travis. [address], [address], [place], [place], [address], [place]. tel:[phone] Referring Provider: Travis Nicholas, [facility] [address], [place], [address] . tel:[phone] [facility], [address] [place] [address] [address], [place], [place], [address], [place] tel:[phone] SEC [place] Professional Complete Exam (chief complaint) No Information 8 Mike Travis. [facility] [address], [address], [place], [place], [address], [place]. tel:[phone] Referring Provider: Travis Nicholas, [facility] [address], [place], [address] . tel:[phone] [facility], [address], [place], [place], [address], [place] tel:[phone] SEC [place] Ham No Information 8 Mike Travis. [facility] [address], [address], [place], [place], [address], [place]. tel:[phone] Referring Provider: Travis Nicholas, [facility] [address], [place], [address] . tel:[phone] [facility], [address], [place], [place], [address], [place] tel:[phone] SEC Denia Ham No Information 8 Vadim Liriano. [address] [place], [address], [place]. tel:[phone] [facility], [address], [place], [place], [address], [place] tel:[phone] SEC Denia Holley Jitendra No Information 7 Travis Elizalde. [address] [facility], [address], [place], [place], [address], [place]. tel:[phone] Referring Provider: Travis Nicholas, [facility] [address], [place], [address] . tel:[phone] [facility], [address] [place] [address] [address], [place], [place], [address], [place] tel:[phone] SEC [place]ossi [place] Professional Complete Exam (chief complaint) No Information 7 Mike Robles. [facility] [address], [address], [place], [place], [address], [place]. tel:[phone] Referring Provider: Travis Nicholas, [facility] [address], [place], [address] . tel:[phone] [facility], [facility] [address], [place], [place], [address], [place] [phone] SEC Denia Ham MGE (chief complaint) No Information 6 Mike Robles. [facility] [address], [address], [place], [place], [address], [place]. tel:[phone] Referring Provider: Travis Nicholas, [facility] [address], [place], [address] . tel:[phone] [facility], [facility] [address], [place], [place], [address], [place] tel:[phone] [place] Professional No Information 6 Mike Robles. [facility] [address], [address], [place], [place], [address], [place]. tel:[phone] Referring Provider: Travis Nicholas, [facility] [address], [place], [address] . tel:[phone] [facility], [address], [place], [place], [address], [place] tel:[phone] SEC [place] Ham No Information 6 Mike Robles. [address] [place] [address] [address], [address], [place], [place], [address], [place]. tel:[phone] Referring Provider: Travis Nicholas, [address] [place] [address], [place], [address] . tel:[phone] [facility], [address] [place] [address] [address], [place], [place], [address], [place] tel:[phone] [place] Professional complete exam (chief complaint) No Information 6 Mike Robles. [address] [place] [address] [address], [address], [place], [place], [address], [place]. tel:[phone] Referring Provider: Travis Nicholas, [facility] [address], [place], [address] . tel:[phone] [facility], [address] [place] [address] [address], [place], [place], [address], [place] [phone] [place] Professional No Information 6 Jodi Hoffman. [address] [facility], [address], [place], [place], [address], [place]. tel:[phone] [facility], [address] [place] [address] [address], [place], [place], [address], [place] [phone] SEC Denia Ham No Information 5 Mike Robles. [address] [place], [place] [address], [address], [place], [place], [address], [place]. tel:[phone] Referring Provider: Travis Nicholas, [address] [place], [place] [address], [place], [address] . tel:[phone] [facility], [address], [place], [place], [address], tel:[phone] SEC Denia N [place] No Information 0 4- 5 Mike Robles. [address], [address], [place], [place], [address], [place]. tel:[phone] Referring Provider: Travis Nicholas, [facility] [address], [place], [address] . tel:[phone] [facility], [address], [place], [place], [address], tel:[phone] SEC [place]ia N [place] No Information 9 5 Mike Robles. [address], [address], [place], [place], [address], . tel:[phone] Referring Provider: Travis Nicholas, [facility] [address], [place], [address] . tel:[phone] [facility], [address], [place], [place], [address], tel:[phone] SEC [place] No Information 5 Mike Robles. [facility] [address], [address], [place], [place], [address], [place]. tel:[phone] Referring Provider: Travis Nicholas, [address], [place], [address] . tel:[phone] [facility], [address], [place], [place], [address], tel:[phone] SEC [place] No Information 3 0- 4 Mike Robles. [address], [address], [place], [place], [address], [place]. tel:[phone] Referring Provider: Travis Nicholas, [facility] [address], [place], [address] . tel:[phone] [facility], [address], [place], [place], [address], [place] tel:[phone] [place] Professional Blurry vision (chief complaint) No Information 4 Mike Robles. [address], [address], [place], [place], [address], [place]. tel:[phone] Referring Provider: Travis Nicholas, [facility] [address], [place], [address] . tel:[phone] Office/outpa tient Visit, [facility], [address] [place] [address] [address], [place], [place], [address], tel:[phone] [place] Professional No Information 4 Mike Robles. [facility] [address], [address], [place], [place], [address], [place]. tel:[phone] Referring Provider: Travis Nicholas, [facility] [address], [place], [address] . tel:[phone] Office/outpa tient Visit, [facility], [address] [place] [address] [address], [place], [place], [address], [place] tel:[phone] SEC [place] Professional No Information 4 Mike Robles. [facility] [address], [address], [place], [place], [address], [place]. tel:[phone] Referring Provider: Travis Nicholas, [facility] [address], [place], [address] . tel:[phone] [facility], [address] [place] [address] [address], [place], [place], [address], tel:[phone] [place] Professional No Information 3 Mike Robles. [address], [address], [place], [place], [address], . tel:[phone] Referring Provider: Travis Nicholas, [address], [place], [address] . tel:[phone] Family History Family Member Type Diagnosis Age At Onset Problem (finding) Family history of Diabe radha mellitus Payers Payer name Insurance type Covered republican ID Authoriza tion(s) [employer] Md[employer] Gold Adv Prime CI [id number] Social History Type Description Quantity Date Captured [...] ed to Age-related nuclear cataract, right eye Impression/Plan - Ca taract presence discussed and symptoms of progression explained, not visually significant to patient. Pt was instructed to return to the office sooner if vision worsens. Pt needs BAT and BCVA on return prior to dilation. Fuchs stable. New spec Rx given to pt. Follow up - 1 yr complete exam Follow up - 1 year complete exam Nuclear sclerosis of both eyes - Written educational material given. Related to Nuclear sclerosis of both eyes Impression/Plan - Di agnosis discussed in detail with patient. Explained the bump she has been noticing RUL is a Seborrheic Keratosis. Fuch's Dystrophy and Cataracts are stable at this time, as well as her IOP. No treatment is needed at this time. We will continue to monitor condition and/or symptoms. - 1 yr complete Related to See [...]
--- OUTSIDE RECORDS SUMMARY | 2024-10-01 15:39 | XMS_ITS | Clinical Summary ---
Author Organization [facility] Address [address] [facility] Attn: Epic Prelude ADT DWAYNE VANN [address] Care Team Providers Care Supervisor Gear Repair Name Role Phone Unavailable Primary Care Provider Unavailabl e Allergies Active Allergy Reactions Criticality Noted Date Comments Azelastine Hcl Headache,Muscle Pain High 08/08/2023 nauseous,chills, cramps Medications zolpidem (AMBIEN) 10 mg tablet Take 1 Tablet (10 mg) by mouth nightly as needed for sleep. 90 Tablet 11/16/2021 2:10 PM CDT 2 Active terconazole (TERAZOL 3) 0.8% vaginal cream Insert 1 applicator into the vagina nightly for 3 days 20 Gram 02/19/2022 11:59 AM CDT 2 Active omeprazole (PriLOSEC) 40 mg Capsule, Delayed Release(E.C.) Take 1 Capsule (40 mg) by mouth daily. 30 Capsule 11 06/27/2022 2:10 PM JEWELRY MOLD MAKER 3 Active albuterol sulfate HFA 90 mcg/actuation aerosol inhaler Inhale 2 puffs every 6 (six) hours as needed for wheezing or shortness of breath 8.5 Gram 01/23/2023 2:54 PM CDT 3 Active benzonatate (TESSALON) 200 mg capsule Take 1 capsule (200 mg total) by mouth 3 (three) times a day as needed for cough 30 Capsule 01/23/2023 2:54 PM CDT 3 Active doxycycline monohydrate 100 mg Tablet Take 1 tablet (100 mg total) by mouth 2 (two) times a day for 7 days 14 Tablet 01/23/2023 2:54 PM CDT 3 Active Azelaic Acid (Finacea) 15 % Gel Apply to face 1-2 times a day 50 Gram 3 01/28/2023 11:39 AM CDT 3 Active spironolactone- hydroCHLOROthia zide (ALDACTAZIDE) 25-25 mg Tablet Take 1 Tablet by mouth daily. 90 Tablet 3 02/01/2023 12:27 PM CDT 3 Active hydrocortisone (HYTONE) 2.5 % Cream APPLY TWICE DAILY TO INFLAMED SKIN ON WRIST WHEN NEEDED 20 Gram 2 04/11/2023 2:08 PM JEWELRY MOLD MAKER 3 Active azelastine (ASTELIN) 137 mcg/actuation nasal spray Administer 2 sprays in each nostril twice a day. 30 mL 11 07/29/2023 2:35 PM CDT 4 Active Azelaic Acid 15 % Gel Apply to face 1-2 times daily 50 Gram 3 10/08/2023 10:13 AM CDT 4 Active azelastine (ASTELIN) 137 mcg/actuation nasal spray Administer 2 sprays in each nostril twice a day 30 mL 11 4 Active terbinafine HCL (LamISIL) 250 mg tablet Take 1 Tablet (250 mg) by mouth daily. 90 Tablet 02/06/2024 2:01 PM CDT 4 Active doxepin (SILENOR) 6 mg Tablet Take 1 Tablet (6 mg) by mouth daily at bedtime. 90 Tablet 3 08/02/2024 3:02 PM CDT 5 Active ipratropium bromide (ATROVENT) 21 mcg (0.03 %) Elizabeth, Non-Aerosol Administer 2 sprays in each nostril twice daily 30 mL 11 09/09/2024 3:50 PM CDT 5 Active spironolactone- hydroCHLOROthia zide (ALDACTAZIDE) 25-25 mg Tablet Take 1 tablet by mouth daily 90 Tablet 1 08/02/2024 3:02 PM CDT 5 Active terbinafine HCL (LamISIL) 250 mg tablet Take 1 Tablet (250 mg) by mouth daily. 90 Tablet 2 08/07/2024 3:56 PM CDT 5 Active estradioL (ESTRACE) 0.01% (0.1 mg/g) vaginal cream INSERT 1/2 GRAM VAGINALLY TWICE WEEKLY NEEDED 42.5 Gram 1 08/07/2024 3:56 PM CDT 5 Active alendronate (FOSAMAX) 70 mg tablet Take 1 tablet (70 mg total) by mouth every 7 days. Take in the morning with a full glass of water, on an empty stomach, and do not take anything else by mouth or lie down for the next 30 min. 12 Tablet 1 08/23/2024 2:58 PM CDT 5 Active famotidine (PEPCID) 40 mg tablet Take 1 tablet (40 mg total) by mouth nightly 100 Tablet 1 09/28/2024 2:39 PM CDT 5 Active fluorouraciL (EFUDEX) 5 % Cream APPLY TWO TIMES DAILY FOR 3 WEEKS TO THE AFFECTED AREA(S) ON THE NOSE. USE DIRECTED. 40 Gram 1 5 Active Azelaic Acid 15 % Gel APPLY TO FACE 1-2 TIMES DAILY DIRECTED. 50 Gram 3 5 Active Hydroquinone 4 % Cream APPLY TWO TIMES DAILY PRECISELY TO DARK SPOTS ON FACE. 28.35 Gram 1 5 Active famotidine (PEPCID) 40 mg tablet Take 1 tablet (40 mg total) by mouth nightly 90 Tablet 3 07/03/2024 2:05 PM CDT 4 09/28/19 25 Discontin ued(Reord er) Social History Tobacco Use Types Packs/Day Years Used Date Smoking Tobacco: Never Assessed Comments Unknown Sex and Gender Information Value Date Recorded Sex Assigned at Not on file Legal Sex Female 3:27 PM CDT Gender Identity Not on file Sexual Orientation Not on file Plan of Treatment Health Maintenance Due Date Last Done Comments DTAP/TDAP/TD VACCINES (1 - Tdap) 1968 COLORECTAL SCREENING 1994 Colorectal Cancer Screening 1994 [...]
--- OUTSIDE RECORDS SUMMARY | 2024-10-01 15:39 | XMS_ITS | Referral Summary ---
Author Organization [facility] [address] [facility] [address] Address [address] [place] [address] Care Team Providers Care Barber Or Beauty Shop Manager Name Role Phone True Bangura MD Primary Care Provider [phone] Encounters Date Type Department Care Team Description 08/07/2024 Telephone [employer] [address] [facility] [address] [place] [address] Britney Mason, RN Estrace Cream Refill 08/05/2024 Orders Only [facility] Health Information Management [address] [place] [address] Scanning, Provider from Last 3 Months Allergies Active Allergy [...] 0 0 06/21/19 16 Active glucosam wang pbe-aftykxxzf-M -Mn (GLUCOSAMINE-CH ONDROITIN) 548-700-97-5 mg tablet BID 0 0 12/22/19 15 [...] (PATADAY OPHT) Administer into affected eye(s) Active rosuvastatin (CRESTOR) 10 mg tablet TAKE [...] daily 90 tablet 1 07/28/19 25 Active estradioL (ESTRACE) 0.01 % (0.1 mg/gram) vaginal cream INSERT 1/2 GRAM VAGINALLY TWICE WEEKLY NEEDED 42.5 g 1 08/08/19 25 Active alendronate (FOSAMAX) 70 mg tablet Take 1 tablet (70 mg total) by mouth every 7 days. Take in the morning with a full glass of water, on an empty stomach, and do not take anything else by mouth or lie down for the next 30 min. 12 tablet 1 08/11/19 25 025 Active famotidine (PEPCID) 40 mg tablet Take 1 tablet (40 mg total) by mouth nightly 100 tablet 1 09/27/19 25 Active famotidine (Pepcid) 40 mg tablet Take 1 tablet (40 mg total) by mouth nightly 90 tablet 3 07/02/19 24 025 Discontinued Active Problems Problem Noted [...] Assessment & Plan (06/30/2024 2:33 PM CDT): [id number] f/u with Dr. Lamb and hearing aid [place]. Assessment & Plan (01/07/2024 10:28 AM CDT): COnbtinue f/u with ENT and audiology. [facility] [place] to r/o intracranial [...] change in CT scna completed yesterday at [facility]. Refused pneumococcal vaccination 06/16/2018 Refused influenza vaccine [...] (10/15/2018): Added automatically from request for surgery [id number] Immunizations Immunization Administration Dates Next Due COVID-19 mRNA (Intralign) 0.3 m L (30 mcg) vaccine (12 [...] Free 01/29/2006 Tdap 08/19/2020 ZOSTER LIVE 02/01/2010,02/01/2010 ZOSTER Recombinant 08/06/2024 Social History Tobacco Use Types Packs/Day Years [...] on file Legal Sex Female 9:17 PM SENIOR INFORMATICA ETL DEVELOPER Gender Identity Not on file Sexual Orientation Not on file Last Filed Vital Signs Vital Sign Reading Time Taken Comments Blood Pressure 136/82 06/30/2024 2:07 PM CDT Pulse 79 06/30/2024 2:07 PM CDT Temperature 36.8 C (98.2 F) 06/30/2024 2:07 PM CDT Respiratory Rate 16 05/18/2024 11:5 0 AM SENIOR INFORMATICA ETL DEVELOPER Oxygen Saturation 98% 06/30/2024 2:07 PM CDT Inhaled Oxygen Concentration - - Weight 85.2 kg (187 lb 12.8 oz) 06/30/2024 2:07 PM CDT Height 165.1 cm (5' 5) 06/30/2024 2:07 PM CDT Body Mass Index 31.25 06/30/2024 2:07 PM CDT Plan of Treatment Not on file Procedures Procedure Name Priority Date/Time Associated Diagnosis Comments SCAN - LABS 08/05/2024 COLONOSCOPY 05/18/2024 9:11 AM SENIOR INFORMATICA ETL DEVELOPER SCREENING MAMMOGRAM BILATERAL W JOSE MANUEL Schedule Routine, Read Routine (OP Routine) 09/03/2023 DEXA AXIAL SKELETON BONE DENSITY 1 OR MORE SITES Schedule Routine, Read Routine (OP Routine) 06/27/2022 Asymptomatic menopausal state from Last 3 Months or Most Recently Relevant to Health Maintenance Results * SCAN - LABS (08/05/2024) us Provider Scanning Final Result * Colonoscopy (05/18/2024 9:11 AM SENIOR INFORMATICA ETL DEVELOPER) Anatomical Region Laterality Modality Other Narrative Procedure Note Bradly Marr MD - 05/18/2024 9:11 AM CST [facility] Patient Name: Elham Benedict Procedure Date: 05/18/2024 9:11 AM Date of : 1950 Admit Type: Outpatient Age: 73 Gender: Female Attending MD: Bradly Marr M.D. Room: [facility] ENDOSCOPY ROOM 1 Note Status: Finalized Patient [...] under direct vision. The Pediatric Colonoscope PCF-H190L [id number] was introducedthrough the anus and advanced to [...] polyps K64.8, Other hemorrhoids CPT copyright 2020 [employer]. All rights reserved. The codes documented in this report are preliminary and upon truck railroad and bus motor mechanic reviewmay be revised to meet current compliance requirements. Recognized by the [place] for promoting quality in endoscopy Bradly Marr MD ENDOSCOPY PROCEDURES Final Result * Screening Mammogram Bilateral W Jose Manuel (09/03/2023) Anatomical Region Laterality Modality Breast Bilateral Mammography us Historical Provider IMG MAMMO PROCEDURES Annette l Result * Dexa Axial Skeleton Bone Density 1 Or 2 Site (06/27/2022) Anatomical Region Laterality Modality Body N/A Radiographic Sayra ging True Bangura MD IMG DXA PROCEDURES Final Result from Last 3 Months or Most Recently Relevant to Health Maintenance Insurance AETNA MEDICARE [facility] MEDICARE Address: [facility] [id number] [place] [address] UHC MEDICARE ADVANTAGE [facility] MEDICARE Advance Directives For more information, please contact: [phone] * Full Code (Latest Code Status on File) Date Activated Date Inactivated Comments 05/18/2024 9:16 AM 05/18/2024 4:11 PM * Full Code Date Activated Date Inactivated Comments 05/18/2024 9:16 AM 05/18/2024 9:16 AM * Full Code Date Activated Date Inactivated Comments 12/05/2018 7:48 AM 12/05/2018 1:56 PM * Full Code Date Activated Date Inactivated Comments 12/05/2018 7:48 AM 12/05/2018 7:48 AM Care Teams Barber Or Beauty Shop Manager Relationship Specialty Start Date End Date True Bangura MD [address] [place] [address] PCP - General 07/20/16
--- OUTSIDE RECORDS SUMMARY | 2024-10-01 15:39 | XMS_ITS | Clinical Summary ---
Author Organization [facility] [address] [facility] [address] Address [address] [place] [address] Care Team Providers Care Diesel Machinist Name Role Phone True Bangura MD Primary Care Provider [phone] Allergies Active Allergy Reactions Criticality Noted Date [...] 0 0 06/21/19 16 Active glucosam wang dev-fsvgzoezd-A -Mn (GLUCOSAMINE-CH ONDROITIN) [id number] mg tablet BID 0 0 12/22/19 15 [...] Assessment & Plan (06/30/2024 2:33 PM CDT): [id number] f/u with Dr. Lamb and hearing aid [place]. Assessment & Plan (01/07/2024 10:28 AM CDT): COnbtinue f/u with ENT and audiology. [facility] [place] area to r/o intracranial [...] change in CT scna completed yesterday at [facility]. Refused pneumococcal vaccination 06/16/2018 Refused [...] (10/15/2018): Added automatically from request for surgery [id number] Encounters Date Type Department Care Team Description 08/07/2024 Telephone [employer] [address] [facility] [address] [facility] [place] [address] Britney Mason, RN Estrace Cream Refill 08/05/2024 Orders Only [facility] Health Information Management [address] [place] [address] Scanning, Provider from Last 3 Months Immunizations Immunization Administration Dates Next Due COVID-19 mRNA (Infinite Enzymes) 0.3 m L (30 mcg) vaccine (12 [...] 08/19/2020 ZOSTER LIVE 02/01/2010,02/01/2010 ZOSTER Recombinant 08/06/2024 Surgical History Surgery Date Site/Laterality Comments TONSILLECTOMY Tonsillectomy TOTAL ABDOMINAL HYSTERECTOMY Hysterectomy, total MOHS SURGERY 07/18/2016 SKIN CANCER EXCISION COLONOSCOPY 07/03/2007 SQUAMOUS CELL CARCINOMA EXCISION 04/22/2020 - 04/21/2021 Left forearm and upper arm COLONOSCOPY 11/20/2018 - 12/20/2018 Medical History Medical History Date Comments Arthritis 2012 Arthritis; Comme nts: [facility] 12/21/2014 - Hx Other Medical 1985 Hyperlipidemia; Comments: [facility] 12/21/2014 - Hypertension 1985 Hypertension; Co mments: [facility] 12/21/2014 - Hx Other Medical 1984 Insomnia; Comme nts: [facility] 12/21/2014 - Hx Other Medical 2012 Rosacea; Commen ts: [facility] 12/21/2014 - Cancer (HCC) basal cell, Squamous [...] on file Legal Sex Female 9: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 Gender Identity Not on file Sexual Orientation [...] Respiratory Rate 16 05/18/2024 11:5 0 AM WALLET ASSEMBLER Oxygen Saturation 98% 06/30/2024 2:07 PM CDT Inhaled Oxygen Concentration - - Weight 85.2 kg (187 lb 12.8 oz) 06/30/2024 2:07 PM CDT Height 165.1 cm (5' 5) 06/30/2024 2:07 PM CDT Body Mass Index 31.25 06/30/2024 2:07 PM CDT Plan of Treatment Health Maintenance Due Date Last Done Comments Hepatitis C Screening 1950 Hepatitis B Screening 08/12/1967 Lung Cancer Screening 08/12/1999 Osteoporosis Screening-Bone Density Scan 06/27/2024 06/27/2022, 06/24/2020, 04/29/2018, Additional history exists Covid-19 Vaccine (2023- 5 season) 2024 03/16/2024, 02/05/2023, 02/05/2023, Additional history exists Zoster Vaccine (3 of 3) 10/01/2024 08/07/19, 02/01/2010, 02/01/2010 Well Visit 65+ 05/26/2025 05/26/2024, 12/21, 03/19/2023, Additional history exists Depression Screening 06/30/2025 06/30/2024, 01/07/2024, 07/02/2023, Additional history exists Fall Risk Assessment 06/30/2025 06/30/2024, 01/07/2024, 07/02/2023, Additional history exists Colon Cancer Screening-Colonoscopy 05/18/2029 05/18/2024, 12/05/2018, 12/05/2018, Additional history exists DTaP/Tdap/Td Vaccine (2 - Td or Tdap) 08/19/2030 08/19/2020, 01/29/2006 Pneumococcal vaccine 65+ Completed 017, 02/19/2017, 01/31/2016, Additional history exists Breast Cancer Screening-Mammogram Discontinued 09/03/2023, 05/29/2022, 06/27/2021, Additional history exists Influenza Vaccine Completed 01/31/2024, [...] - LABS 08/05/2024 COLONOSCOPY 05/18/2024 9:11 AM WALLET ASSEMBLER SCREENING MAMMOGRAM BILATERAL W JOSE MANUEL Schedule Routine, Read Routine (OP Routine) 09/03/2023 DEXA AXIAL SKELETON BONE DENSITY 1 OR MORE SITES Schedule Routine, Read Routine (OP Routine) 06/27/2022 Asymptomatic menopausal state from Last 3 Months or Most Recently Relevant to Health Maintenance Results * SCAN - LABS (08/05/2024) us Provider Scanning Final Result * Colonoscopy (05/18/2024 9:11 AM WALLET ASSEMBLER) Anatomical Region Laterality Modality Other Narrative Procedure Note Bradly Marr MD - 05/18/2024 9:11 AM CST [facility] Patient Name: Elham Benedict Procedure Date: 05/18/2024 9:11 AM Date of : 1950 Admit Type: Outpatient Age: 73 Gender: Female Attending MD: Bradly Marr M.D. Room: [facility] ENDOSCOPY ROOM 1 Note Status: Finalized Patient [...] under direct vision. The Pediatric Colonoscope PCF-H190L [id number] was introducedthrough the anus and advanced to [...] polyps K64.8, Other hemorrhoids CPT copyright 2020 [employer]. All rights reserved. The codes documented in this report are preliminary and upon women specialist reviewmay be revised to meet current compliance requirements. Recognized by the [employer] for promoting quality [...] Relevant to Health Maintenance Insurance [facility] MEDICARE UHC MEDICARE ADVANTAGE AETNA MEDICARE Advance Directives For more information, please contact: [phone] * Full Code (Latest Code Status on File) Date Activated Date Inactivated Comments 05/18/2024 9:16 AM 05/18/2024 4:11 PM * Full Code Date Activated Date Inactivated Comments 05/18/2024 9:16 AM 05/18/2024 9:16 AM * Full Code Date Activated Date Inactivated Comments 12/05/2018 7:48 AM 12/05/2018 1:56 PM * Full Code Date Activated Date Inactivated Comments 12/05/2018 7:48 AM 12/05/2018 7:48 AM Care Teams Diesel Machinist Relationship Specialty Start Date End Date True Bangura MD [address] [place] [address] PCP - General 07/20/16
--- OUTSIDE RECORDS SUMMARY | 2024-10-01 15:39 | XMS_ITS | Encounter Summary ---
Author Organization [facility] Address [address] [place] [address] Care Team Providers Care Head Swamper Name Role Phone Unavailable Primary Care Provider Unavailabl e Encounter Details Date Type Department Care Team (Late st Contact Info) Description 12/30/2019 Lab Requisition [facility] [address] [place] [id number] [place] [address] [place] [address] Social History Tobacco Use Types Packs/Day Years [...] AM CDT) Case Report Dermatopathology Report Case: [id number] Authorizing Provider: Alexia Alvarado MD Collected: 12/29/2019 12:00 AM Ordering Location: [facility] Received: 12/30/2019 12:52 PM Pathologist: Chanel Delgadillo MD Specimen: Skin, left proximal radial dorsal forearm 0 12:53 PM CDT DERMATOPATHOLOGY LABORATORY Final Diagnosis Specimen A. 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 . 0 12:53 PM CDT DERMATOPATHOLOGY LABORATORY Gross Description Specimen A: Received is one formalin filled container labeled with the patient's name and designated left proximal radial dorsal forearm. The specimen consists of a shave biopsy measuring [id number]. Jar 0. 0 12:53 PM CDT DERMATOPATHOLOGY [...] characteristic determined by the Dermatopathology Laboratory at [facility], directed by Dr. Markos Jones. These tests need not be, and therefore are not, approved by the [place] Food and Drug Administration. The tests are used for clinical purposes. Billing Codes Specimen Charges Stain Charges 64532 1 0 12:53 PM CDT DERMATOPATHOLOGY LABORATORY Embedded Images 0 12:53 PM CDT DERMATOPATHOLOGY LABORATORY Pathology/Cytolog y TISSUE SPECIMEN FROM SKIN / Unknown 12/29/2019 12/30/2019 12:52 PM CDT us Alexia Alvarado MD LAB - PATHOLOGY/CYTOLOGY ORDERABLES Final Result DERMATOPATHOLOGY LABORATORY [facility] - Department of Dermatology [address], [address] [phone] documented in this encounter Visit Diagnoses Not on filedocumented in this encounter
== END 2024-10-01 15:04 | disposition home or self-care (01) ==
LOC: ANHIMG 15:06
PROVIDERS: PCP Family Medicine; Visit Provider Obstetrics & Gynecology
DX: Z12.31 Encounter for screening mammogram for malignant neoplasm of breast (principal)
CPT/HCPCS: 77063; 77067

== ENCOUNTER 2024-12-01 10:15 | Outpatient (CLI) | payer MEDICARE, SELFPAY ==
--- NOTE | ~2024-12-01 | DEXA_ITS ---
Bone Density Report Name: SUMA STRICKLAND Age: 74 Sex: Female Ethnicity: White Date of : 1950 Indication: monitoring treatment; prior fracture; asthma or emphysema; hysterectomy; Referring Provider: LUCIANO, SHERYL Larios Study: Bone densitometry was performed. Exam Date: December 01, 2024 Accession number: [id number] Bone Density: Region BMD T-score Z-score Classification AP Spine(L1-L4) 1.077 0.3 2.7 Normal Femoral Neck (Left) 0.681 -1.5 0.6 Osteopenia Total Hip (Left) 0.925 -0.1 1.7 Normal Femoral Neck (Right) 0.896 0.4 2.5 Normal Total Hip (Right) 0.907 -0.3 1.5 Normal Total Hip Mean 0.916 -0.2 1.6 Normal World Health Organization criteria for BMD impression classify patients as: Normal (T-score at or above -1.0), Osteopenia (T-score between -1.0 and -2.5), or Osteoporosis (T-score at or below -2.5). 10-year Fracture Risk: FRAX not reported because: Prior hip or vertebral fracture Treated for osteoporosis Previous Exams: Region Exam Age BMD T-score BMD Change BMD Change Date g/cm2 vs Baseline vs Previous AP Spine (L1-L4) 12/01/2024 74 1.077 0.3 0.041 (3.9%)* 0.041 (3.9%)* 06/27/2022 71 1.036 -0.1 Total Hip(Left) 12/01/2024 74 0.925 -0.1 0.065 (7.6%)* 0.019 (2.0%) 06/27/2022 71 0.906 -0.3 0.047 (5.5%)* 0.034 (3.9%)* 06/24/2020 69 0.872 -0.6 0.013 (1.5%) 0.013 (1.5%) 04/29/2018 67 0.859 -0.7 Total Hip(Right) 12/01/2024 74 0.907 -0.3 0.062 (7.4%)* 0.048 (5.6%)* 06/27/2022 71 0.858 -0.7 0.014 (1.7%) -0.018 (-2.1%) 06/24/2020 69 0.876 -0.5 0.032 (3.8%)* 0.032 (3.8%)* 04/29/2018 67 0.844 -0.8 *Denotes significance at 95% confidence level, LSC for AP Spine = 0.022 g/cm2, LSC for Total Hip = 0.027 g/cm2 Clinical Information Provided by Patient: Have had a previous hip or vertebral fracture Has had a low trauma fracture Is being treated for osteoporosis Has used the following medications: Fosamax (i.e. alendronate), Vitamin D, Calcium Has the following medical conditions: Asthma or Emphysema, Hysterectomy Patient maximum height was 65.5 Menopause Age: 51 No regular weight bearing exercise Drinks caffeinated beverages Onset of menses at age 15 Number of children 3 Missed period for more than 6 months in a row Impression: The patient has low bone mass, based on the Left Femoral Neck T-score. The patient has risk factors, including: previous fracture. No significant bone loss was observed. Discussion: PATIENT UNDER TREATMENT WITH NO SIGNIFICANT BMD LOSS SINCE LAST EXAM. In an untreated patient, BMD typically declines with age. A lack of decline or gain is usually a sign that treatment is efficacious and fracture risk is reduced. It is important to ask patients whether they are taking their medications and to encourage continued and appropriate compliance with their osteoporosis therapies to reduce fracture risk. It is also important to review their risk factors and encourage appropriate calcium and vitamin D intakes, exercise, fall prevention and other lifestyle measures. Follow-Up: Consider a repeat BMD and Vertebral Fracture Assessment (VFA) exam in 2 years or sooner if medically necessary, to reassess this patient's status. Reported by: KARLI on 12/01/2024 10:56:00 AM. Reviewed, dictated and finalized at location A.
--- OUTSIDE RECORDS SUMMARY | 2024-12-01 11:01 | XMS_ITS | Clinical Summary ---
Author Organization [employer] Address [address] [facility] Attn: Epic Prelude ADT DWAYNE VANN [address] Care Team Providers Care Lockstitch Collar Setter Name Role Phone Unavailable Primary Care Provider [...] daily. 30 Capsule 11 06/27/2022 2:10 PM CLINIC MANAGER 3 Active albuterol sulfate HFA 90 mcg/actuation [...] 3 01/28/2023 11:39 AM CDT 3 Active spironolactone-h ydroCHLOROthiazi de (ALDACTAZIDE) 25-25 mg Tablet Take 1 Tablet by mouth daily. 90 Tablet 3 02/01/2023 12:27 PM CDT 3 Active hydrocortisone (HYTONE) 2.5 % Cream APPLY TWICE DAILY TO INFLAMED SKIN ON WRIST WHEN NEEDED 20 Gram 2 04/11/2023 2:08 PM CLINIC MANAGER 3 Active azelastine (ASTELIN) 137 mcg/actuation nasal [...] mouth daily at bedtime. 90 Tablet 3 11/10/2024 9:06 AM CDT 5 Active ipratropium bromide (ATROVENT) 21 mcg (0.03 %) [place], Non-Aerosol Administer 2 sprays in each nostril twice daily 30 mL 11 10/31/2024 10:33 AM CDT 5 Active spironolactone-h ydroCHLOROthiazi de (ALDACTAZIDE) 25-25 mg Tablet Take 1 tablet by mouth daily 90 Tablet 1 10/31/2024 10:31 AM CDT 5 Active terbinafine HCL (LamISIL) 250 [...] the next 30 min. 12 Tablet 1 11/10/2024 9:06 AM CDT 5 Active famotidine (PEPCID) 40 mg tablet Take 1 tablet (40 mg total) by mouth nightly 100 Tablet 1 09/28/2024 2:39 PM CDT 5 Active fluorouraciL (EFUDEX) 5 % Cream APPLY TWO TIMES DAILY FOR 3 WEEKS TO THE AFFECTED AREA(S) ON THE NOSE. USE DIRECTED. 40 Gram 1 10/03/2024 10:22 AM CDT 5 Active Azelaic Acid 15 % Gel APPLY TO FACE 1-2 TIMES DAILY DIRECTED. 50 Gram 3 5 Active Hydroquinone 4 % Cream APPLY TWO TIMES DAILY PRECISELY TO DARK SPOTS ON FACE. 28.35 Gram 1 10/03/2024 10:22 AM CDT 5 Active Encounters Date Type Department Care Team Description 10/13/2024 External Device Data [facility] ABSTRACTION Provider, Abstract from Last 3 Months Social History Tobacco Use Types Packs/Day Years [...] (1 of 2) 08/12/1999 OSTEOPOROSIS SCREENING 2014 RSV VACCINE (60+ or ) (1 - 1-dose 75+ series) 2024 INFLUENZA VACCINE (#1) 2024 Insurance RX AETNA Medicare Part D RX [employer] (INTERNAL) [facility]
--- OUTSIDE RECORDS SUMMARY | 2024-12-01 11:01 | XMS_ITS | Clinical Summary ---
Author Organization [facility] Address [address] [place] [address] Care Team Providers Care Tooth Inspector Name Role Phone Unavailable Primary Care Provider Unavailabl e Source Comments [facility],non-owned Affiliates and Associated Physician Practices is amultiple site organization consisting of ambulatory clinics and hospital sitesin [place], [place], [place] and [place]. This disclosure is being madepursuant to the Care Everywhere program and may not contain all information available regarding this patient. Last updated 18.[facility] Disrupt6 Social History Tobacco Use Types Packs/Day Years [...] VACCINE (1 of 2) 08/12/1999 COVID-19 VACCINE (1 - 2023-2 5 season) 2023 DEPRESSION SCREENING 04/22/2024 Respiratory Syncytial Virus (RSV) Vaccine Pt: or over 60 yrs (1 - 1-dose 75+ series) 2024 INFLUENZA VACCINE (#1) 2024 HEPATITIS B VACCINE Aged Out No [...]
--- OUTSIDE RECORDS SUMMARY | 2024-12-01 11:01 | XMS_ITS | Clinical Summary ---
Author Organization [facility] [address] [facility] lt Address [address] [address] Care Team Providers Care Group Underwriter Name Role Phone True Bangura MD Primary Care Provider [phone] [phone] Allergies Active Allergy Reactions Criticality Noted Date [...] biotin 800 mcg tablet BID 0 0 5 Active coenzyme Q10 (CO Q-10) 100 mg capsule one daily 0 0 5 Active calcium-magnesiu m-zinc 333-133-8.3 mg tablet one daily 0 0 5 Active Lactobacillus acidophilus (PROBIOTIC) 10 billion cell capsule one daily 0 0 5 Active multivitamin capsule one daily 0 0 5 Active loratadine (CLARITIN) 10 mg tablet take 1 tablet by oral route every day 0 0 6 Active glucosam wang wqi-rbbkyblzm-B- Mn (GLUCOSAMINE-CHO NDROITIN) 004-118-15-5 mg tablet BID 0 0 5 Active calcium carbonate (CALCIUM 600) 1,500 mg (600 mg of elemental calcium) tablet BID 0 0 5 Active azelaic acid 15 % gel Apply [...] TAKE 1 TABLET DAILY 90 tablet 3 4 Active verapamil SR (CALAN SR) 180 mg CR tablet TAKE 1 TABLET DAILY 90 tablet 3 4 Active doxepin 6 mg tablet Take 1 Tablet (6 mg) by mouth daily at bedtime. 90 tablet 3 5 Active terbinafine (LamiSIL) 250 mg tablet Take 1 tablet (250 mg total) by mouth daily Active spironolactone-h ydroCHLOROthiazi de (ALDACTAZIDE) 25-25 mg per tablet Take 1 tablet by mouth daily 90 tablet 1 5 Active estradioL (ESTRACE) 0.01 % (0.1 mg/gram) vaginal cream INSERT 1/2 GRAM VAGINALLY TWICE WEEKLY NEEDED 42.5 g 1 5 Active alendronate (FOSAMAX) 70 mg tablet Take 1 tablet (70 mg total) by mouth every 7 days. Take in the morning with a full glass of water, on an empty stomach, and do not take anything else by mouth or lie down for the next 30 min. 12 tablet 1 5 01/26/20 25 Active famotidine (PEPCID) 40 mg tablet Take 1 tablet (40 mg total) by mouth nightly 100 tablet 1 5 Active Active Problems Problem Noted Date Diagnosed Date Non-allergic eosinophilic rhinitis (NARES) 06/30 Assessment & Plan (06/30/2024 2:33 PM CDT): COntinue to follow and montior erspinse. NO change and will follw nino. Refer [...] Assessment & Plan (06/30/2024 2:33 PM CDT): Dg2iiwmvr f/u with Dr. Lamb and hearing aid [place]. Assessment & Plan (01/07/2024 10:28 AM CDT): COnbtinue f/u with ENT and audiology. Ucpomi MRI of the area to r/o intracranial [...] change in CT scna completed yesterday at [facility]. Refused pneumococcal vaccination 06/16/2018 Refused influenza vaccine [...] (10/15/2018): Added automatically from request for surgery [id number] Immunizations Immunization Administration Dates Next Due COVID-19 mRNA (XODIS) 0.3 m L (30 mcg) vaccine (12 [...] Refused),01/01/2023(Deferred: Patient Refused),01/20/2021,04/22/2020(Deferre d: Patient Refused),01/21/2020,02/13/2019, 017,02/19/2017 Tvoop SARS-CoV-2 Monovalent Vaccination (12+ Yrs) PURPLE 11/14/2021,05/03/2020,04/12/2020 Pneumococcal Conjugate PCV 13 01/31/2016, 016 Pneumococcal Polysaccharide PPV23 02/19/2017, RSV Vaccine, Pref, Recombina nt, Subunit, Adjuvanted, PF, IM (Arexvy) 02/13/2023 Sars-cov-2 Covid-19 Mrna, Bi valent, Original/omicron Ba.1 02/05/2023 TD Preservative Free 01/29/2006 Tdap 08/19/2020 ZOSTER LIVE 02/01/2010,02/01/2010 ZOSTER Recombinant 11/16/2024,08/06/2024 Surgical History Surgery Date Site/Laterality Comments TONSILLECTOMY Tonsillectomy TOTAL ABDOMINAL HYSTERECTOMY Hysterectomy, total MOHS SURGERY 07/18/2016 SKIN CANCER EXCISION COLONOSCOPY 07/03/2007 SQUAMOUS CELL CARCINOMA EXCISION 04/22/2020 - 04/21/2021 Left forearm and upper arm COLONOSCOPY 11/20/2018 - 12/20/2018 Medical History Medical History Date Comments Arthritis 2012 Arthritis; Comme nts: [facility] 12/21/2014 - Hx Other Medical 1985 Hyperlipidemia; Comments: [facility] 12/21/2014 - Hypertension 1985 Hypertension; Co mments: [facility] 12/21/2014 - Hx Other Medical 1984 Insomnia; Comme nts: [facility] 12/21/2014 - Hx Other Medical 2012 Rosacea; Commen ts: [facility] 12/21/2014 - Cancer (HCC) basal cell, Squamous [...] on file Legal Sex Female 9:17 PM HEALTH COUNSELOR Gender Identity Not on file Sexual Orientation [...] Respiratory Rate 16 05/18/2024 11:5 0 AM HEALTH COUNSELOR Oxygen Saturation 98% 06/30/2024 2:07 PM CDT [...] 2024 03/16/2024, 02/05/2023, 02/05/2023, Additional history exists Influenza Vaccine (#1) 2024 , 01/28/2023, 02/06/2022, Additional history exists Well Visit 65+ 05/26/2025 05/26/2024, 12/21, 03/19/2023, Additional history exists Depression Screening 06/30/2025 06/30/2024, 01/07/2024, 07/02/2023, Additional history exists Fall Risk Assessment 06/30/2025 06/30/2024, 01/07/2024, 07/02/2023, Additional history exists Colon Cancer Screening-Colonoscopy 05/18/2029 05/18/2024, 12/05/2018, 12/05/2018, Additional history exists DTaP/Tdap/Td Vaccine (2 - Td or Tdap) 08/19/2030 08/19/2020, 01/29/2006 Pneumococcal vaccine 65+ Completed 017, 02/19/2017, 01/31/2016, Additional history exists Colon Cancer Screening-CT Colonography Discontinued 05/18/2024, 12/05/2018, 12/05/2018, Additional history exists Colon Cancer Screening-DNA Stool Discontinued 05/18/2024, 12/05/2018, 12/05/2018, Additional history exists Colon Cancer Screening-FIT Discontinued 05/18, 12/05/2018, 12/05/2018, Additional history exists Colon Cancer Screening-Sigmoidoscopy Discontinued 05/18/2024, 12/05/2018, 12/05/2018, Additional history exists Breast Cancer Screening-Mammogram Discontinued 10/01/2024, 09/03/2023, 05/29/2022, Additional history exists Zoster Vaccine Completed 11/16/2024, 07/21, 02/01/2010, Additional history exists Procedures Procedure Name Priority Date/Time Associated Diagnosis Comments SCREENING MAMMOGRAM BILATERAL W JOSE MANUEL Schedule Routine, Read Routine (OP Routine) 10/01/2024 3:54 PM CDT Encounter for screening mammogram for malignant neoplasm of breast COLONOSCOPY 05/18/2024 9:11 AM HEALTH COUNSELOR DEXA AXIAL SKELETON BONE DENSITY 1 OR MORE SITES Schedule Routine, Read Routine (OP Routine) 06/27/2022 Asymptomatic menopausal state from Last 3 Months or Most Recently Relevant to Health Maintenance Results * SCREENING MAMMOGRAM BILATERAL W JOSE MANUEL (10/01/2024 3:54 PM CDT) Anatomical Region Laterality Modality Breast Bilateral Mammography 10/01/2024 3:54 PM CDT us True Bangura MD IMG MAMMO PROCEDURES Annette l Result * Colonoscopy (05/18/2024 9:11 AM HEALTH COUNSELOR) Anatomical Region Laterality Modality Other Narrative Procedure Note Bradly Marr MD - 05/18/2024 9:[address] [facility] Patient Name: Elham Benedict Procedure Date: 05/18/2024 9:11 AM Date of : 1950 Admit Type: Outpatient Age: 73 Gender: Female Attending MD: Bradly Marr M.D. Room: [facility] ENDOSCOPY ROOM 1 Note Status: Finalized [...] under direct vision. The Pediatric Colonoscope PCF-H190L [id number] was introducedthrough the anus and advanced to [...] polyps K64.8, Other hemorrhoids CPT copyright 2020 [employer]. All rights reserved. The codes documented in this report are preliminary and upon coder operator reviewmay be revised to meet current compliance requirements. Recognized by the [employer] for promoting quality in endoscopy Bradly Marr MD ENDOSCOPY PROCEDURES Final Result * Dexa Axial Skeleton Bone Density 1 Or 2 Site (06/27/2022) Anatomical Region Laterality Modality Body N/A Radiographic Sayra ging True Bangura MD IMG DXA PROCEDURES Final Result from Last 3 Months or Most Recently Relevant to Health Maintenance Insurance A[employer] MEDICARE UHC MEDICARE ADVANTAGE [facility] MEDICARE Advance Directives For more information, please contact: [phone] * Full Code (Latest Code Status on File) Date Activated Date Inactivated Comments 05/18/2024 9:16 AM 05/18/2024 4:11 PM * Full Code Date Activated Date Inactivated Comments 05/18/2024 9:16 AM 05/18/2024 9:16 AM * Full Code Date Activated Date Inactivated Comments 12/05/2018 7:48 AM 12/05/2018 1:56 PM * Full Code Date Activated Date Inactivated Comments 12/05/2018 7:48 AM 12/05/2018 7:48 AM Care Teams Group Underwriter Relationship Specialty Start Date End Date True Bangura MD [address] [place] [address] [facility] - General 07/20/16
--- OUTSIDE RECORDS SUMMARY | 2024-12-01 11:01 | XMS_ITS | Encounter Summary ---
Author Organization [facility] Address [address] [place] [address] Care Team Providers Care Milling Machine Operator Gear Name Role Phone Unavailable Primary Care Provider Unavailabl e Encounter Details Date Type Department Care Team (Late st Contact Info) Description 09/29/2019 Lab Requisition [facility] DermPath Lab [address] [place] [id number] [place] [address] [place] [address] Social History Tobacco Use Types Packs/Day Years [...] AM CDT) Case Report Dermatopathology Report Case: [id number] Authorizing Provider: Alexia Alvarado MD Collected: 09/28/2019 12:00 AM Ordering Location: [facility] DermPath Lab Received: 09/29/2019 [...] of a shave biopsy (2 pieces) measuring [id number] & [id number]. Jar 0. 0 3:06 PM CDT DERMATOPATHOLOGY [...] characteristic determined by the Dermatopathology Laboratory at [facility], directed by Dr. Markos Jones. These tests need not be, and therefore are not, approved by the [place] Food and Drug Administration. The tests are used for clinical purposes. Billing Codes Specimen Charges Stain Charges 34021 1 0 3:06 PM CDT DERMATOPATHOLOGY LABORATORY Embedded Images 0 3:06 PM CDT DERMATOPATHOLOGY LABORATORY Pathology/Cytolog y TISSUE SPECIMEN FROM SKIN / Unknown 09/28/2019 09/29/2019 1:10 PM CDT us Alexia Alvarado MD LAB - PATHOLOGY/CYTOLOGY ORDERABLES Final Result DERMATOPATHOLOGY LABORATORY [facility] - Department of Dermatology [employer] [place] [address], [facility] [phone] documented in this encounter Visit Diagnoses Not on filedocumented in this encounter
--- OUTSIDE RECORDS SUMMARY | 2024-12-01 11:01 | XMS_ITS | Encounter Summary ---
Author Organization [facility] Address [address] [place] [address] Care Team Providers Care Operations Label Clerk Name Role Phone Unavailable Primary Care Provider Unavailabl e Encounter Details Date Type Department Care Team (Late st Contact Info) Description 01/28/2020 Lab Requisition [facility] DermPath Lab [address] [place] [phone] [place] [address] [place] [address] Social History Tobacco Use Types Packs/Day Years [...] AM CDT) Case Report Dermatopathology Report Case: [id number] Authorizing Provider: Alexia Alvarado MD Collected: 01/28/2020 12:00 AM Ordering Location: [facility] DermPath Lab Received: 01/28/2020 01:18 PM Pathologist: [...] characteristic determined by the Dermatopathology Laboratory at [facility], directed by Dr. Markos Jones. These tests need not be, and therefore are not, approved by the [place] Food and Drug Administration. The tests are used for clinical purposes. Billing Codes Specimen Charges Stain Charges 45094 1 0 3:45 PM CDT DERMATOPATHOLOGY LABORATORY Embedded Images 0 3:45 PM CDT DERMATOPATHOLOGY LABORATORY Pathology/Cytolog y TISSUE SPECIMEN FROM SKIN / Unknown 01/28/2020 01/28/2020 1:18 PM CDT Alexia Alvarado MD LAB - PATHOLOGY/CYTOLOGY ORDERABLES Final Result DERMATOPATHOLOGY LABORATORY [facility] - Department of Dermatology [address], [address] [phone] documented in this encounter Visit Diagnoses Not on filedocumented in this encounter
--- OUTSIDE RECORDS SUMMARY | 2024-12-01 11:01 | XMS_ITS | Encounter Summary ---
Author Organization [facility] Address [address] [place] [address] Care Team Providers Care Kerfer Machine Operator Name Role Phone Unavailable Primary Care Provider Unavailabl e Encounter Details Date Type Department Care Team (Late st Contact Info) Description 12/30/2019 Lab Requisition [facility] DermPath Lab [address] [place] [phone] [place] [address] [place] [address] Social History Tobacco Use Types Packs/Day Years [...] AM CDT) Case Report Dermatopathology Report Case: [id number] Authorizing Provider: Alexia Alvarado MD Collected: 12/29/2019 12:00 AM Ordering Location: [facility] DermPath Lab Received: 12/30/2019 12:52 PM Pathologist: [...] specimen consists of a shave biopsy measuring 1y8n7mf. Jar 0. 0 12:53 PM CDT DERMATOPATHOLOGY [...] characteristic determined by the Dermatopathology Laboratory at [facility], directed by Dr. Markos Jones. These tests need not be, and therefore are not, approved by the [place] Food and Drug Administration. The tests are used for clinical purposes. Billing Codes Specimen Charges Stain Charges 87861 1 0 12:53 PM CDT DERMATOPATHOLOGY LABORATORY Embedded Images 0 12:53 PM CDT DERMATOPATHOLOGY LABORATORY Pathology/Cytolog y TISSUE SPECIMEN FROM SKIN / Unknown 12/29/2019 12/30/2019 12:52 PM CDT us Alexia Alvarado MD LAB - PATHOLOGY/CYTOLOGY ORDERABLES Final Result DERMATOPATHOLOGY LABORATORY [facility] - Department of Dermatology [address] [phone] documented in this encounter Visit Diagnoses Not on filedocumented in this encounter
== END 2024-12-01 10:16 | disposition home or self-care (01) ==
LOC: ANHIMG 10:17
PROVIDERS: PCP Family Medicine; Visit Provider Family Medicine
DX: M85.88 Other specified disorders of bone density and structure, other site (principal); Z78.0 Asymptomatic menopausal state
CPT/HCPCS: 77080

== ENCOUNTER 2024-12-14 13:41 | Outpatient (CLI) | payer MEDICARE, SELFPAY ==
--- NOTE | ~2024-12-14 | CT_ITS ---
EXAMINATION: CT chest high resolution wo ut DATE: 12/14/2024 14:04 INDICATION: ILD cough TECHNIQUE: Computed tomography (CT) of the chest was performed without intravenous contrast. The dose-length product was 173.98 mGy-cm. COMPARISON: 01/06/2024, 12/31/2022, 06/06/2022 FINDINGS: No enlarged mediastinal or hilar lymph nodes. Heart is unenlarged. Thoracic aorta is minimally calcified but is not aneurysmal. Stable too small to characterize low-attenuation lesion in the left lobe of the liver. Visualized liver is grossly stable. Tracheobronchial tree is patent. No pneumothorax. No pleural effusion. No pulmonary mass. Grossly stable appearance of the bilateral widespread peripheral irregular septal line thickening and mild groundglass opacities with peripheral and lower lung predominance. Grossly stable osseous structures. IMPRESSION: 1. Overall, grossly stable exam as compared to the study from 01/06/2024. Reviewed, dictated and finalized at location Q.
--- OUTSIDE RECORDS SUMMARY | 2024-12-14 13:45 | XMS_ITS | Clinical Summary ---
Author Organization [facility] Address [address] Attn: Epic Prelude ADT DWAYNE VANN [address] Care Team Providers Care Edger Machine Helper Name Role Phone Unavailable Primary Care Provider [...] daily. 30 Capsule 11 06/27/2022 2:10 PM SPORT SHOE SPIKE ASSEMBLER 3 Active albuterol sulfate HFA 90 mcg/actuation [...] NEEDED 20 Gram 2 04/11/2023 2:08 PM SPORT SHOE SPIKE ASSEMBLER 3 Active azelastine (ASTELIN) 137 mcg/actuation nasal [...] ipratropium bromide (ATROVENT) 21 mcg (0.03 %) [place], Non-Aerosol Administer 2 sprays in each nostril [...]
--- OUTSIDE RECORDS SUMMARY | 2024-12-14 13:45 | XMS_ITS | Clinical Summary ---
Author Organization [facility] [address] [facility] lt Address [address] [place] [address] Care Team Providers Care Singer Songwriter Name Role Phone True Bangura MD Primary Care Provider [phone] [phone] Allergies Active Allergy Reactions Criticality Noted Date [...] day 0 0 6 Active glucosam wang nis-jqfgybnlf-C- Mn (GLUCOSAMINE-CHO NDROITIN) 110-194-82-5 mg tablet BID 0 0 5 Active [...] Assessment & Plan (06/30/2024 2:33 PM CDT): [id number] f/u with Dr. Lamb and hearing aid [...] change in CT scna completed yesterday at [facility]. Refused pneumococcal vaccination 06/16/2018 Refused influenza vaccine [...] (10/15/2018): Added automatically from request for surgery [id number] Immunizations Immunization Administration Dates Next Due COVID-19 mRNA ([employer]) 0.3 m L (30 mcg) vaccine (12 [...] Refused),01/01/2023(Deferred: Patient Refused),01/20/2021,04/22/2020(Deferre d: Patient Refused),01/21/2020,02/13/2019, 017,02/19/2017 Reactful SARS-CoV-2 Monovalent Vaccination (12+ Yrs) PURPLE 11/14/2021,05/03/2020,04/12/2020 [...] Date Comments Arthritis 2012 Arthritis; Comme nts: [facility] 12/21/2014 - Hx Other Medical 1985 Hyperlipidemia; Comments: [facility] 12/21/2014 - Hypertension 1985 Hypertension; Co mments: [facility] 12/21/2014 - Hx Other Medical 1984 Insomnia; Comme nts: [facility] 12/21/2014 - Hx Other Medical 2012 Rosacea; Commen ts: [facility] 12/21/2014 - Cancer (HCC) basal [...] on file Legal Sex Female 9:17 PM TRACTOR TRAILER MECHANIC Gender Identity Not on file Sexual Orientation [...] Respiratory Rate 16 05/18/2024 11:5 0 AM TRACTOR TRAILER MECHANIC Oxygen Saturation 98% 06/30/2024 2:07 PM CDT Inhaled Oxygen Concentration - - Weight 85.2 kg (187 lb 12.8 oz) 06/30/2024 2:07 PM CDT Height 165.1 cm (5' 5) 06/30/2024 2:07 PM CDT Body Mass Index 31.25 06/30/2024 2:07 PM CDT Plan of Treatment Health Maintenance Due Date Last Done Comments Hepatitis C Screening 1950 Hepatitis B Screening 08/12/1967 Lung Cancer Screening 08/12/1999 Covid-19 Vaccine ( 5 season) 2024 03/16/2024, 02/05/2023, 02/05/2023, Additional history exists Influenza Vaccine (#1) 2024 , 01/28/2023, 02/06/2022, Additional history exists Well Visit 65+ 05/26/2025 05/26/2024, 12/21, 03/19/2023, Additional history exists Depression Screening 06/30/2025 06/30/2024, 01/07/2024, 07/02/2023, Additional history exists Fall Risk Assessment 06/30/2025 06/30/2024, 01/07/2024, 07/02/2023, Additional history exists Osteoporosis Screening-Bone Density Scan 12/01/2026 12/01/2024, 06/27/2022, 06/24/2020, Additional history exists Colon Cancer Screening-Colonoscopy 05/18/2029 [...] history exists Zoster Vaccine Completed 11/16/2024, 07/21, 07/25/2011, Additional history exists Procedures Procedure Name Priority Date/Time Associated Diagnosis Comments HM DEXA SCAN Routine 12/01/2024 4:15 PM CDT SCREENING MAMMOGRAM BILATERAL W JOSE MANUEL Schedule Routine, Read Routine (OP Routine) 10/01/2024 3:54 PM CDT Encounter for screening mammogram for malignant neoplasm of breast COLONOSCOPY 05/18/2024 9:11 AM TRACTOR TRAILER MECHANIC from Last 3 Months or Most Recently Relevant to Health Maintenance Results * (ABNORMAL) HM DEXA SCAN (12/01/2024 4:15 PM CDT) Scribed HM Deca Scan Abnormal Historical Provider HEALTH MAINTENANCE Edited Result - Final * SCREENING MAMMOGRAM BILATERAL W JOSE MANUEL (10/01/2024 3:54 PM CDT) Anatomical Region Laterality Modality Breast Bilateral Mammography 10/01/2024 3:54 PM CDT True Bangrua MD IMG MAMMO PROCEDURES Annette l Result * Colonoscopy (05/18/2024 9:11 AM TRACTOR TRAILER MECHANIC) Anatomical Region Laterality Modality Other Narrative Procedure Note Bradly Marr MD - 05/18/2024 9:11 AM CST [facility] Patient Name: Elham Benedict Procedure Date: 05/18/2024 9:11 AM Date of : 1950 Admit Type: Outpatient Age: 73 Gender: Female Attending MD: Bradly Marr M.D. Room: [facility] ENDOSCOPY ROOM 1 Note Status: Finalized Patient [...] under direct vision. The Pediatric Colonoscope PCF-H190L [id number] was introducedthrough the anus and advanced to [...] polyps K64.8, Other hemorrhoids CPT copyright 2020 [employer]. All rights reserved. The codes documented in this report are preliminary and upon refractory specialist reviewmay be revised to meet current compliance requirements. Recognized by the [employer] for promoting quality in endoscopy Bradly Marr MD ENDOSCOPY PROCEDURES Final Result from Last 3 Months or Most Recently Relevant to Health Maintenance Insurance T MEDICARE UHC MEDICARE ADVANTAGE [facility] MEDIC[facility] Address: [address] [address] [place] [address] [facility] MEDIC[facility] Advance Directives For more information, please contact: [phone] * Full Code (Latest Code Status on File) Date Activated Date Inactivated Comments 05/18/2024 9:16 AM 05/18/2024 4:11 PM * Full Code Date Activated Date Inactivated Comments 05/18/2024 9:16 AM 05/18/2024 9:16 AM * Full Code Date Activated Date Inactivated Comments 12/05/2018 7:48 AM 12/05/2018 1:56 PM * Full Code Date Activated Date Inactivated Comments 12/05/2018 7:48 AM 12/05/2018 7:48 AM Care Teams Singer Songwriter Relationship Specialty Start Date End Date True Bangura MD [address] [place] [address] [facility] - General 07/20/16
--- OUTSIDE RECORDS SUMMARY | 2024-12-14 13:45 | XMS_ITS | Encounter Summary ---
Author Organization [facility] Address [address] [address] Care Team Providers Care Assembler Flexible [employer] Name Role Phone Unavailable Primary Care Provider Unavailabl e Encounter Details Date Type Department Care Team (Late st Contact Info) Description 01/28/2020 Lab Requisition [facility] DermPath Lab [address] [place] [id number] [place] [address] [place] [address] Social History Tobacco Use Types Packs/Day Years [...] AM CDT) Case Report Dermatopathology Report Case: [id number] Authorizing Provider: Alexia Alvarado MD Collected: 01/28/2020 12:00 AM Ordering Location: [facility] DermPath Lab Received: 01/28/2020 01:18 PM [...] characteristic determined by the Dermatopathology Laboratory at [facility], directed by Dr. Markos Jones. These tests need not be, and therefore are not, approved by the [place] Food and Drug Administration. The tests are used for clinical purposes. Billing Codes Specimen Charges Stain Charges 18525 1 0 3:45 PM CDT DERMATOPATHOLOGY LABORATORY Embedded Images 0 3:45 PM CDT DERMATOPATHOLOGY LABORATORY Pathology/Cytolog y TISSUE SPECIMEN FROM SKIN / Unknown 01/28/2020 01/28/2020 1:18 PM CDT Alexia Alvarado MD LAB - PATHOLOGY/CYTOLOGY ORDERABLES Final Result DERMATOPATHOLOGY LABORATORY [facility] - Department of Dermatology [address], [address] [phone] documented in this encounter Visit Diagnoses Not on filedocumented in this encounter
--- OUTSIDE RECORDS SUMMARY | 2024-12-14 13:45 | XMS_ITS | Clinical Summary ---
Author Organization [facility] Address [address] [place] [address] Care Team Providers Care Tax Staff Accountant Name Role Phone Unavailable Primary Care Provider Unavailabl e Source Comments [facility],non-owned Affiliates and Associated Physician Practices is amultiple site organization consisting of ambulatory clinics and hospital sitesin [place], [place], [place] and [place]. This disclosure is being madepursuant to the Care Everywhere program and may not contain all information available regarding this patient. Last updated 18.[facility] [employer] Social History Tobacco Use Types Packs/Day Years [...]
--- OUTSIDE RECORDS SUMMARY | 2024-12-14 13:45 | XMS_ITS | Encounter Summary ---
Author Organization [facility] Address [address] [place] [address] Care Team Providers Care Counter Clerk [employer] Name Role Phone Unavailable Primary Care Provider Unavailabl e Encounter Details Date Type Department Care Team (Late st Contact Info) Description 09/29/2019 Lab Requisition [facility] DermPath Lab [address] [place] [phone] [place] [address] [place] [address] Social History Tobacco Use Types Packs/Day Years [...] AM CDT) Case Report Dermatopathology Report Case: [id number] Authorizing Provider: Alexia Alvarado MD Collected: 09/28/2019 12:00 AM Ordering Location: [facility] DermPath Lab Received: 09/29/2019 [...] of a shave biopsy (2 pieces) measuring [id number] & [id number]. Jar 0. 0 3:06 PM CDT DERMATOPATHOLOGY [...] determined by the Dermatopathology Laboratory at [facility], directed by Dr. Markos Jones. These tests need not be, and therefore are not, approved by the [place] Food and Drug Administration. The tests are used for clinical purposes. Billing Codes Specimen Charges Stain Charges 86656 1 0 3:06 PM CDT DERMATOPATHOLOGY LABORATORY Embedded Images 0 3:06 PM CDT DERMATOPATHOLOGY LABORATORY Pathology/Cytolog y TISSUE SPECIMEN FROM SKIN / Unknown 09/28/2019 09/29/2019 1:10 PM CDT us Alexia Alvarado MD LAB - PATHOLOGY/CYTOLOGY ORDERABLES Final Result DERMATOPATHOLOGY LABORATORY [facility] - Department of Dermatology [employer] [place] [address], [facility] [phone] documented in this encounter Visit Diagnoses Not on filedocumented in this encounter
--- OUTSIDE RECORDS SUMMARY | 2024-12-14 13:45 | XMS_ITS | Encounter Summary ---
Author Organization [facility] Address [address] [place] [address] Care Team Providers Care Risk Reduction Counselor Name Role Phone Unavailable Primary Care Provider Unavailabl e Encounter Details Date Type Department Care Team (Late st Contact Info) Description 12/30/2019 Lab Requisition [facility] DermPath Lab [address] [place] [phone] [place] [address] [place] [address] Social History Tobacco Use Types Packs/Day Years [...] AM CDT) Case Report Dermatopathology Report Case: [id number] Authorizing Provider: Alexia Alvarado MD Collected: 12/29/2019 12:00 AM Ordering Location: [facility] DermPath Lab Received: 12/30/2019 12:52 PM Pathologist: [...] specimen consists of a shave biopsy measuring [id number]. Jar 0. 0 12:53 PM CDT DERMATOPATHOLOGY [...] characteristic determined by the Dermatopathology Laboratory at [facility], directed by Dr. Markos Jones. These tests need not be, and therefore are not, approved by the [place] Food and Drug Administration. The tests are used for clinical purposes. Billing Codes Specimen Charges Stain Charges 12712 1 0 12:53 PM CDT DERMATOPATHOLOGY LABORATORY Embedded Images 0 12:53 PM CDT DERMATOPATHOLOGY LABORATORY Pathology/Cytolog y TISSUE SPECIMEN FROM SKIN / Unknown 12/29/2019 12/30/2019 12:52 PM CDT us Alexia Alvarado MD LAB - PATHOLOGY/CYTOLOGY ORDERABLES Final Result DERMATOPATHOLOGY LABORATORY [facility] - Department of Dermatology [address] [phone] documented in this encounter Visit Diagnoses Not on filedocumented in this encounter
== END 2024-12-14 13:42 | disposition home or self-care (01) ==
PROVIDERS: PCP Family Medicine; Visit Provider Internal Medicine Pulmonary Disease
DX: J84.9 Interstitial pulmonary disease, unspecified (principal)
CPT/HCPCS: 71250